=== PATIENT | female | born 1975 | race Caucasian/White ===

== ENCOUNTER 2024-01-29 11:30 | Emergency (ER) | payer OTHER ==
--- NOTE | 2024-01-29 11:35 | ERPHSYRPT ---
- History of Present Illness Time Seen by Provider: 01/29/24 11:35 Source: patient Exam Limitations: no limitations Physician History: This is a 48-year-old white female patient who has had swelling and tenderness in the area of the left parotid gland for over a month. Tylenol has not been helping. Patient does smoke marijuana and smokes tobacco cigarettes. She describes the pain as an ache. She has not had any fever or chills symptoms. She does have pain when she swallows on the left side in the hypopharyngeal region. She has no difficulty breathing or difficulty swallowing. Timing/Duration: gradual onset, weeks Severity: mild (Over 4 weeks) ENT Location: facial (Left side of face in the region of the parotid gland) Prearrival Treatment: over the counter meds Modifying Factors: Improves With: nothing Associated Symptoms: swollen glands, sore throat (Left side hypopharyngeal region), No difficulty swallowing, No voice change Allergies/Adverse Reactions: No Known Drug Allergies Allergy (Verified 01/29/24 11:42) Home Medications: Cariprazine HCl [Vraylar] 01/29/24 [History] Clopidogrel Bisulfate [Clopidogrel] 75 mg PO 01/29/24 [History] Insulin Aspart 100 unit SQ 01/29/24 [History] clonazePAM [Clonazepam] 1 mg PO 01/29/24 [History] Travel Risk - International Travel Have you traveled outside of the country in past 3 weeks: No - Emerging Infectious Disease Are you exhibiting symptoms associated with any current EIDs: No - Review of Systems Constitutional: No Symptoms Eyes: No Symptoms Ears, Nose, & Throat: Painful Swallowing (Mild left side hypopharyngeal region), Other Respiratory: No Symptoms Cardiac: No Symptoms Abdominal/Gastrointestinal: No Symptoms Genitourinary Symptoms: No Symptoms Musculoskeletal: No Symptoms Skin: No Symptoms Neurological: No Symptoms Psychological: No Symptoms Endocrine: No Symptoms Hematologic/Lymphatic: No Symptoms Immunological/Allergic: No Symptoms All Other Systems: Reviewed and Negative - Past Medical History Pertinent Past Medical History: Yes - Past Surgical History Past Surgical History: Yes - Nursing Vital Signs Nursing Vital Signs: Initial Vital Signs Temperature 97.7 F 01/29/24 11:36 Pulse Rate 83 01/29/24 11:36 Respiratory Rate 18 01/29/24 11:36 Blood Pressure 104/55 01/29/24 11:36 O2 Sat by Pulse Oximetry 98 01/29/24 11:36 Pain Scale Pain Intensity 10 - Physical Exam General Appearance: no apparent distress, alert, anxiety, thin Eye Exam: bilateral eye: normal inspection, PERRL, EOMI Ear Exam: bilateral ear: auricle normal, canal normal, TM normal Nasal Exam: normal inspection Throat Exam: normal, pharynx normal, moist mucus membranes, No dental tenderness, No excessive drooling, No voice changes Neck Exam: normal inspection, non-tender, supple, full range of motion Cardiovascular/Respiratory Exam: chest non-tender, no respiratory distress Abdominal Exam: non-tender Neurologic Exam: alert, oriented x 3, cooperative, salvager helper II-XII nml as tested, normal mood/affect, nml cerebellar function, nml station & gait, sensation nml Skin Exam: normal color, warm, dry SpO2 Interpretation: normal O2 Delivery: Room Air - Course Nursing assessment & vital signs reviewed: Yes - Progress Progress: unchanged Progress Note: 01/29/24 12:22 My medical decision making and the assignment of low complexity to this patient's medical issue today is based on review of the patient's past medical history, review the patient's medication list, review of patient drug allergy list, history present illness and physical findings on examination. No radiog raphic or laboratory studies are necessary in this patient. Differential diagnosis includes ENT carcinoma, sialadenitis, pharyngitis Counseled pt/family regarding: diagnosis, need for follow-up Medical Desision Making - Diagnostic Testing Diagnostic test were ordered, analyzed, and reviewed by me: No - Risk of complications The pt has a mod risk of morbidity or mortality based on: Need for prescription drug management - Departure Departure Disposition: Home Clinical Impression: Sialoadenitis, unspecified Condition: Stable Critical Care Time: No Referrals: PAUL TORRES MD [Primary Care Provider] - Follow up/PCP as directed Additional Instructions: Drink plenty of clear liquids. Use lemon drop candy several times a day. Massage the area of tenderness. Take your medication as prescribed. Call your primary care provider today, 01/29/2024, to make arrangements to be seen in the next 3 days for further evaluation and management including referral to an ear nose and throat physician if indicated Prescriptions: Hydrocodone/APAP 5/325 [Timnath 5/325 mg] 1 each PO Q12H PRN PRN #4 tablet MDD 2 PRN Reason: Pain Cephalexin Mh 500 mg [Keflex 500 mg] 500 mg PO TID #21 cap
[2024-01-29 11:42] VITALS: O2SAT 98
[2024-01-29 12:44] VITALS: BP 110/50; PULSE 88; RESP 20; TEMP 97.8
== END 2024-01-29 13:15 | disposition home or self-care (01) ==
LOC: ED 11:30
DX: K11.20 Sialoadenitis, unspecified (principal); Z79.02 Long term (current) use of antithrombotics/antiplatelets; Z79.891 Long term (current) use of opiate analgesic; Z79.899 Other long term (current) drug therapy
CPT/HCPCS: 99281

== ENCOUNTER 2024-03-07 12:59 | Emergency (ER) | payer OTHER ==
[2024-03-07 13:17] VITALS: BP 141/65; PULSE 83; RESP 18; TEMP 97; O2SAT 98
--- NOTE | 2024-03-07 14:10 | ERPHSYRPT ---
- History of Present Illness Time Seen by Provider: 03/07/24 13:21 Source: patient Exam Limitations: no limitations Patient Subjective Stated Complaint: pt here for swelling to left side of face, she recetly was seen and told it was a clogged saliva gland. having chills and nausea Triage Nursing Assessment: pt alert, resp easy, skin w/d/p. pt has swelling to left side of face, moves all ext well Physician History: 48 years old female with a history of tobacco use presented in the ER for the left lower jaw and side of the face swelling for almost 2 months, was evaluated at this ER, finished course of antibiotics, improved for few days and now again having increase in the swelling and pain especially with swallowing. Subjective feeling of fever and chills at times. No fever today. Denies any weight loss. Pain radiates to the left ear and head. No change in the taste. No hyperacusis Allergies/Adverse Reactions: No Known Drug Allergies Allergy (Verified 03/07/24 13:06) Home Medications: Cariprazine HCl [Vraylar] 1 ea DAILY 01/29/24 [History] Clopidogrel Bisulfate [Clopidogrel] 75 mg PO DAILY 01/29/24 [History] Insulin Aspart 100 unit SQ TID 01/29/24 [History] clonazePAM [Clonazepam] 1 mg PO DAILY 01/29/24 [History] Hx Tetanus, Diphtheria Vaccination/Date Given: Yes Hx Influenza Vaccination/Date Given: No Hx Pneumococcal Vaccination/Date Given: No Immunizations Up to Date: Yes Travel Risk - International Travel Have you traveled outside of the country in past 3 weeks: No - Emerging Infectious Disease Are you exhibiting symptoms associated with any current EIDs: No - Review of Systems Constitutional: No Symptoms Eyes: No Symptoms Ears, Nose, & Throat: Throat Swelling Respiratory: No Symptoms Cardiac: No Symptoms Abdominal/Gastrointestinal: No Symptoms Musculoskeletal: No Symptoms Skin: No Symptoms Neurological: No Symptoms - Past Medical History Pertinent Past Medical History: Yes Cardiac History: Myocardial Infarction ([place]) Endocrine Medical History: Diabetes Type I, Hypothyroidism - Past Surgical History Past Surgical History: Yes Other Surgical History: cyst. c section x 2. heart cath. appi - Female History Hx Last Menstrual Period: post Hx Now: No - Social History Smoking Status: Current every day smoker How long have you smoked: years Exposure to second hand smoke: Yes Drug Use: marijuana - Social Determinants of Health Will the patient participate in the screening: Declined to provide - Nursing Vital Signs Nursing Vital Signs: Initial Vital Signs Temperature 97.0 F 03/07/24 13:16 Pulse Rate 83 03/07/24 13:16 Respiratory Rate 18 03/07/24 13:16 Blood Pressure 141/65 03/07/24 13:16 O2 Sat by Pulse Oximetry 98 03/07/24 13:16 Pain Scale Pain Intensity 8 - Physical Exam General Appearance: no apparent distress, alert Eye Exam: bilateral eye: normal inspection, PERRL, EOMI Ear Exam: bilateral ear: auricle normal, canal normal, TM normal, bleeding Nasal Exam: normal inspection Throat Exam: normal, pharynx normal, mandibular swelling (Small area in the left mandible angle with minimal swelling as compared to right 1. Tenderness. 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 nml as tested Skin Exam: normal color SpO2 Interpretation: normal SpO2: 98 O2 Delivery: Room Air Ordered Tests: Active Orders 24 hr Category Date Time Status FACIAL BONES WO CONTRAST [CT] Stat Exams 03/07/24 13:33 Completed Medication Summary Discontinued Medications Generic Name Dose Route Start Last Admin Trade Name Axel PRN Reason Stop Dose Admin Ketorolac Tromethamine 30 mg 03/07/24 14:55 03/07/24 15:22 Ketorolac Tromethamine 30 Mg/Ml Inj IM 03/07/24 14:56 30 mg STAT ONE Administration Ketorolac Tromethamine Confirm 03/07/24 15:10 Ketorolac Tromethamine 30 Mg/Ml Inj Administered 03/07/24 15:11 Dose 30 mg .ROUTE .STK-MED ONE - Progress Progress: pain not gone completely Progress Note: 03/07/24 15:34 48 years old is evaluated in the ER for left angle of mandible area swelling with previously taken antibiotics for possible parotitis. Patient has no fever, no tachypnea or tachycardia. I have obtained CT facial bone which did not show any focal solid cystic soft tissue mass parotid and mandibular glands are bilateral symmetrical no other acute pathology in the face but patient does have left TMJ degenerative changes and I believe her pain is from TMJ. Recommended outpatient auto inspector/maxillofacial surgery follow-up. Do not think she needs any other workup. She is given Toradol for symptomatic relief and feeling some improvement. Recommended taking Tylenol ibuprofen as needed and outpatient follow-up. Discussed signs symptoms of worsening needing return to ER which she seems understanding. Counseled pt/family regarding: diagnosis, need for follow-up, rad results Medical Desision Making - Diagnostic Testing Diagnostic test were ordered, analyzed, and reviewed by me: Yes Radiological Interpretation: Reviewed by me - Risk of complications The pt has a mod risk of morbidity or mortality based on: Need for prescription drug management - Departure Departure Disposition: Home Clinical Impression: TMJ arthropathy Condition: Stable Critical Care Time: No Referrals: PAUL TORRES MD [Primary Care Provider] - Follow up with PCP 1 day AMIRA DIETZ DDS [NON-STAFF PHY W/O PRIVILEGES] - Follow up/PCP as directed (Call for appointment) Instructions: Temporomandibular Joint (TMJ) Disorders ([place]) Additional Instructions: Take Tylenol/ibuprofen as needed. Follow-up with auto inspector/maxillofacial surgery for reevaluation. Return to ER for any worsening. Prescriptions: Ibuprofen 600 mg PO Q6HPRN PRN 10 Days #20 tablet PRN Reason: Pain
--- NOTE | 2024-03-07 14:33 | XRAY ---
Indication: Left jaw swelling. No known injury. Multiple contiguous axial images through the facial bones. Cutaneous BB placed over region of interest. Comparison: None Cutaneous BB is adjacent to left masseter muscle. No underlying focal solid/cystic soft tissue mass. Parotid and submandibular glands are bilaterally symmetric. A few tiny bilateral cervical lymph nodes, none pathologically enlarged. Major arteries and veins are normal in course and caliber. Supra and infraglottic airway is widely patent. Normal epiglottis. Base of brain unremarkable. No acute fracture or suspicious bony lesions. Orbits including roof, chinchilla, and floors intact. Paranasal sinuses and nasal passages are clear. Osseous structures intact with mild C5-C7 degenerative changes. Mild degenerative changes left TMJ. No suspicious bony lesions. Impression: C5-C7 and left TMJ degenerative changes. Remaining CT facial bones without contrast exam is negative.
[2024-03-07] MEDS ORDERED: TORAdol 30 mg Injection ONE (15:10)
[2024-03-07] MEDS: TORAdol 30 mg Injection IM ONE (15:22)
== END 2024-03-07 15:50 | disposition home or self-care (01) ==
LOC: ED 12:59
DX: M26.652 Arthropathy of left temporomandibular joint (principal); E10.9 Type 1 diabetes mellitus without complications; Z79.02 Long term (current) use of antithrombotics/antiplatelets; Z79.899 Other long term (current) drug therapy; Z72.0 Tobacco use
CPT/HCPCS: 70486; 96372; 99283; J1885

== ENCOUNTER 2024-05-21 18:46 | Emergency (ER) | payer OTHER ==
[2024-05-21 19:09] VITALS: RESP 14; TEMP 98.1; O2SAT 97
[2024-05-21] MEDS: TORAdol 30 mg Injection IV ONE (19:18)
[2024-05-21] MEDS ORDERED: DECADRON 10MG INJ. ONE (19:19)
[2024-05-21] MEDS: DECADRON 10MG INJ. IM ONE (19:19)
[2024-05-21] MEDS ORDERED: TORAdol 30 mg Injection ONE (19:19)
[2024-05-21] MEDS: TORAdol 30 mg Injection IM ONE (19:20)
--- NOTE | 2024-05-21 19:23 | ERPHSYRPT ---
- History of Present Illness Time Seen by Provider: 05/21/24 19:17 Source: patient Exam Limitations: no limitations Patient Subjective Stated Complaint: pt states that she began to have back pain around 3 Triage Nursing Assessment: pt ambulated into the er; pt is axo x4; c/o back pain; pt states 10/10 pain lower back, pt is having trouble staying awake during triage; no bruising or deformity to lower back; good ROM to back; skin PDW; vitals wnl Physician History: 49-year-old female presents to our ED for evaluation of low back pain. Patient states low back pain started today. No trauma no fever. No recent back p rocedure. No change in bowel bladder function. Patient is concerned as she has a history of kidney stones. Patient reports she is worried that her back pain may actually be kidney stone related.. Symptoms are mild to moderate in intensity. No specific worsening improving factors. Patient denies urinary symptomology. No urinary frequency urgency or dysuria. Patient voices no other complaints or concerns at this time. Portions of this note were created with voice recognition technology. There may be grammatical, spelling, punctuation or sound alike errors Timing/Duration: today Method of Injury: unknown Quality: aching Back Pain Location: lumbar spine Severity of Pain-Max: moderate Severity of Pain-Current: mild Modifying Factors: Improves With: movement Associated Symptoms: denies symptoms, No fever, No urinary incontinence, No nausea, No vomiting, No weakness Allergies/Adverse Reactions: No Known Drug Allergies Allergy (Verified 05/21/24 18:58) Home Medications: Cariprazine HCl [Vraylar] 1 ea DAILY 01/29/24 [History] Clopidogrel Bisulfate [Clopidogrel] 75 mg PO DAILY 01/29/24 [History] Insulin Aspart 100 unit SQ TID 01/29/24 [History] clonazePAM [Clonazepam] 1 mg PO DAILY 01/29/24 [History] Hx Tetanus, Diphtheria Vaccination/Date Given: Yes Hx Influenza Vaccination/Date Given: No Hx Pneumococcal Vaccination/Date Given: No Travel Risk - International Travel Have you traveled outside of the country in past 3 weeks: No - Emerging Infectious Disease Are you exhibiting symptoms associated with any current EIDs: No - Review of Systems Constitutional: No Symptoms, No Fever, No Chills Eyes: No Symptoms Ears, Nose, & Throat: No Symptoms Respiratory: No Symptoms, No Cough, No Dyspnea Cardiac: No Symptoms, No Chest Pain, No Edema, No Syncope Abdominal/Gastrointestinal: No Symptoms, No Abdominal Pain, No Nausea, No Vomiting, No Diarrhea Genitourinary Symptoms: No Symptoms, No Dysuria Musculoskeletal: No Symptoms, No Back Pain, No Neck Pain Skin: No Symptoms, No Rash Neurological: No Symptoms, No Dizziness, No Focal Weakness, No Sensory Changes Psychological: No Symptoms Endocrine: No Symptoms Hematologic/Lymphatic: No Symptoms Immunological/Allergic: No Symptoms All Other Systems: Reviewed and Negative - Past Medical History Pertinent Past Medical History: Yes Cardiac History: High Cholesterol, Hypertension, Myocardial Infarction ([place]) Endocrine Medical History: Diabetes Type I, Hypothyroidism Psycho-Social History: Anxiety - Past Surgical History Past Surgical History: Yes Cardiac: Cardiac Catheterization Gastrointestinal: Appendectomy Female Surgical History: Section Other Surgical History: cyst. c section x 2. heart cath. appi - Female History Hx Last Menstrual Period: post Hx Now: No - Social History Smoking Status: Current every day smoker How long have you smoked: years Exposure to second hand smoke: Yes Drug Use: marijuana - Social Determinants of Health Will the patient participate in the screening: Declined to provide - Nursing Vital Signs Nursing Vital Signs: Initial Vital Signs Temperature 98.1 F 05/21/24 18:59 Pulse Rate 82 05/21/24 18:59 Respiratory Rate 14 05/21/24 18:59 Blood Pressure 101/67 05/21/24 18:59 O2 Sat by Pulse Oximetry 97 05/21/24 18:59 Pain Scale Pain Intensity [Lower Back] 10 Pain Intensity 10 - Physical Exam General Appearance: no apparent distress, alert Eye Exam: PERRL/EOMI, eyes nml inspection Neck Exam: normal inspection, non-tender, supple, full range of motion, No meningismus, No midline tenderness Respiratory Exam: normal breath sounds, lungs clear, No respiratory distress Cardiovascular Exam: regular rate/rhythm, normal heart sounds Gastrointestinal Exam: soft, No tenderness, No mass Back Exam: other (Tenderness to palpation midline low back) Extremity Exam: normal inspection, normal range of motion, No calf tenderness, No pedal edema Neurologic Exam: alert, oriented x 3, cooperative, 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 Stomach distended with food moderate diffuse fecal stasis. 5 mm nonobstructing left renal stone. Minimal lumbar dextroscoliosis.) Ordered Tests: Active Orders 24 hr Category Date Time Status ABDOMEN AND PELVIS W/0 CONTRAS [CT] Stat Exams 05/21/24 19:13 Taken RECONSTRUCTION [CT] Stat Exams 05/21/24 19:14 Taken POCT GLUCOSE Stat Lab 05/21/24 20:16 Completed UA W/RFX UR CULTURE Stat Lab 05/21/24 19:22 Completed Medication Summary Discontinued Medications Generic Name Dose Route Start Last Admin Trade Name Freq PRN Reason Stop Dose Admin Dexamethasone Sodium Phosphate 6 mg 05/21/24 19:16 05/21/24 19:19 Dexamethasone Sod Phosphate 10 Mg/Ml IM 05/21/24 19:17 6 mg STAT ONE Administration Dexamethasone Sodium Phosphate Confirm 05/21/24 19:19 Dexamethasone Sod Phosphate 10 Mg/Ml Administered 05/21/24 19:20 Dose 10 mg .ROUTE .STK-MED ONE Ketorolac Tromethamine 30 mg 05/21/24 19:15 05/21/24 19:18 Ketorolac Tromethamine 30 Mg/Ml Inj IV 05/21/24 19:16 Not Given STAT ONE Ketorolac Tromethamine 30 mg 05/21/24 19:17 05/21/24 19:20 Ketorolac Tromethamine 30 Mg/Ml Inj IM 05/21/24 19:18 30 mg STAT ONE Administration Ketorolac Tromethamine Confirm 05/21/24 19:19 Ketorolac Tromethamine 30 Mg/Ml Inj Administered 05/21/24 19:20 Dose 30 mg .ROUTE .STK-MED ONE Lab/Rad Data: Laboratory Results 05/21/24 05/21/24 Range/Units 20:16 19:22 POC Glucometer 165 H (74 to 106) mg/dL Urine Color Yellow (Yellow) Urine Appearance Clear (Clear) Urine pH 5.5 (4.6-8.0) Ur Specific [place] >=1.030 A (1.005-1.030) Urine Protein Negative (Negative) Urine Glucose (UA) >=1000 A (Negative) mg/dL Urine Ketones Negative (Negative) Urine Blood Moderate A (Negative) Urine Nitrite Negative (Negative) Urine Bilirubin Negative (Negative) Urine Urobilinogen 1.0 A (0.2) mg/dL Ur Leukocyte Esterase Negative (Negative) U Hyaline Cast (Auto) NONE SEEN (0-2) /LPF Urine Microscopic RBC 21-50 A (0-5) /HPF Urine Microscopic WBC 3-5 (0-5) /HPF Ur Epithelial Cells Moderate A (None Seen) /HPF Urine Bacteria None Seen (None Seen) /HPF Urine Culture Reflexed NO (NO) - Progress Progress: improved Progress Note: 49-year-old female presents to our ED for evaluation of low back pain. Patient concern for ureterolithiasis. CT abdomen pelvis negative for ureterolithiasis. 3D reconstruction views lumbar spine shows dextroscoliosis degenerative disc disease. Patient received Decadron and Toradol for pain control. Patient reassessed no active pain. Patient is comfortable. Urinalysis reveals a glucosuria however patient on Jardiance which will cause this problem. Blood sugar is 167. Will discharge patient home. Patient agrees to follow-up with her primary care doctor within 48 hours for reevaluation. Portions of this note were created with voice recognition technology. There may be grammatical, spelling, punctuation or sound alike errors Complexity of problem addressed is moderate acute complicated. No critical care time. Complex of data reviewed and analyzed is moderate. Test ordered test reviewed results analyzed and correlated clinically with history and physical exam. Risk of complication and or risk of morbidity/mortality patient management is moderate. Vital stable time spent to discharge patient approximately 15 minutes. Plan of care established for shared decision making. No social determinants of health present impede follow-up. Portions of this note were created with voice recognition technology. There may be grammatical, spelling, punctuation or sound alike errors 05/21/24 20:50 Counseled pt/family regarding: lab results, diagnosis, need for follow-up - Departure Departure Disposition: Home Clinical Impression: Glucosuria, Lumbosacral strain, She has fecal stasis, Dextroscoliosis of lumbar spine Condition: Stable Critical Care Time: No Referrals: PAUL TORRES MD [Primary Care Provider] - Follow up/PCP as directed Additional Instructions: Discharge/Care Plan ABHINAV DYER was seen on 05/21/24 in the Emergency Room. The patient was counseled regarding Diagnosis,Lab results, Imaging studies, need for follow up and when to return to the Emergency Room. Prescriptions given: Discharge Note I have spoken with the patient and/or caregivers. I have explained the patient's condition, diagnosis and treatment plan based on the information available to me at this time. I have answered the patient's and/or caregiver's questions and addressed any concerns. The patient and/or caregivers have as good understanding of the patient's diagnosis, condition and treatment plan as can be expected at this point. The vital signs have been stable. The patient's condition is stable and appropriate for discharge from the emergency department. The patient will pursue further outpatient evaluation with the primary care physician or other designated or consulting physician as outlined in the discharge instructions. The patient and/or caregivers are agreeable to this plan of care and follow-up instructions have been explained in detail. The patient and/or caregivers have received these instruction. The patient/and or caregivers are aware that any significant change in condition or worsening of symptoms should prompt an immediate return to this or the closest emergency department or call 911. Prescriptions: Ketorolac Trometh 10 mg Tab [TORAdol 10 MG TABLET] 10 mg PO TID 5 Days #15 tablet
[2024-05-21 19:30] LABS: Appearance Clear (Clear); Bacteria None Seen /HPF (None Seen); Bilirubin Negative (Negative); Blood Moderate (Negative); Epithelial Cells Moderate /HPF (None Seen); Glucose, Urine >=1000 mg/dL (Negative); Hyaline Casts NONE SEEN /LPF (0-2); Ketones Negative (Negative); Leukocyte Esterase Negative (Negative); Nitrite Negative (Negative); Ph 5.5 (4.6-8.0); Protein,Urine Dip Negative (Negative); RBC 21-50 /HPF (0-5); Specific Gravity >=1.030 (1.005-1.030)
[2024-05-21 19:45] LABS: ADD URINE CULTURE? NO (NO)
[2024-05-21 21:02] VITALS: BP 98/62; PULSE 80
--- NOTE | 2024-05-22 08:44 | XRAY ---
Indication: Pain. Multiple contiguous axial images obtained through the abdomen pelvis without contrast. Comparison: None Lung bases clear. Heart not enlarged. Stomach markedly distended with food. Gallbladder contracted without gallstones. Noncontrasted stomach and bowel loops appear nonobstructed. Appendix not visualized. There is moderate diffuse scattered colonic fecal debris throughout. Left kidney demonstrates 5 mm nonobstructing calculus. No free fluid/air. Remaining liver, gallbladder, pancreas, spleen, adrenal glands, kidneys, ureters, bladder, and uterus are unremarkable for noncontrast exam. Mild scattered aortoiliac calcifications without AAA. Osseous structures intact with minimal dextroscoliosis centered at L2. No ventral or inguinal hernias. Impression: 1. Moderate diffuse fecal stasis, nonobstructing left renal micro-calculus, and dextroscoliosis. 2. Remaining CT abdomen/pelvis without contrast exam is negative.
--- NOTE | 2024-05-22 08:46 | XRAY ---
Indication: Pain. Low back strain. Sagittal, coronal and axial reformatted images lumbar spine obtained using raw data from same day CT abdomen/pelvis exam. Minimal broad-based disc bulge at L3-S1 levels. No acute fracture, suspicious bony lesions, or spinal canal stenosis. Facets are symmetric. Sagittal and coronal reformatted images demonstrate normal lumbar lordosis with minimal dextroscoliosis centered at L2. Vertebral body heights/disc spaces maintained. No acute compression fracture. CT abdomen/pelvis reported separately. Impression: Minimal L3-S1 broad-based disc bulge better evaluated with outpatient MRI. Minimal dextroscoliosis. Remaining CT lumbar spine negative.
== END 2024-05-21 21:06 | disposition home or self-care (01) ==
LOC: ED 18:46
DX: R81 Glycosuria (principal); S39.012A Strain of muscle, fascia and tendon of lower back, initial encounter; K59.89 Other specified functional intestinal disorders; M41.86 Other forms of scoliosis, lumbar region; E78.5 Hyperlipidemia, unspecified; I10 Essential (primary) hypertension; E10.9 Type 1 diabetes mellitus without complications; Z79.02 Long term (current) use of antithrombotics/antiplatelets; Z79.899 Other long term (current) drug therapy; Z72.0 Tobacco use
CPT/HCPCS: 74176; 76376; 81001; 82947; 96372; 99284; J1100; J1885

== ENCOUNTER 2024-05-29 12:18 | Emergency (ER) | payer OTHER ==
[2024-05-29 12:48] VITALS: TEMP 98.6
[2024-05-29] MEDS: Zofran 4 MG/2 ML VIAL IV ONE ×2 (13:08→13:31)
[2024-05-29] MEDS: MORPHINE SULFATE 4 MG INJ IV ONE (13:08)
[2024-05-29] MEDS ORDERED: TORAdol 30 mg Injection ONE (13:10)
[2024-05-29] MEDS: TORAdol 30 mg Injection IM ONE (13:12)
--- NOTE | 2024-05-29 13:23 | XRAY ---
CLINICAL HISTORY: right rib cage pain from fall COMPARISON: None TECHNIQUE: X-ray of right ribs showing AP and oblique with chest AP views FINDINGS: Suspected fracture of the right 11th rib showing subtle angulation. No other bony rib injuries were identified. No sclerotic or lytic bony lesions. Soft tissue densities appear normal. The visualized right lung field appears clear. No evidence of pneumothorax. IMPRESSION: 1. Suspected fracture of the right 11th rib showing subtle angulation. Correlation with point tenderness in this region is suggested 2. No other bony rib injuries were identified. DISCLAIMER:A subtle bone abnormality or fracture may not be readily apparent on x-rays, thus clinical correlation and further imaging including follow-up CT, MRI, or follow-up X-rays are advised as needed.[facility] ER was called at [phone] at 12:17 PM [employer], 05/29/2024 and Bernarda was informed regarding the presence of Important Medical Findings in the report. Electronically Signed by: Nixon Kelly MD. (05/29/2024 13:19:59 EDT)
[2024-05-29 13:29] LABS: Absolute Neutrophil Ct (ANC) 5.92 x10^3/uL (1.56-6.13); BASOPHIL % 0.8 % (0.1-1.2); Basophil (Absolute #) 0.07 x10^3/uL (0.01-0.08); Eosinophil % 0.7 % (0.7-5.8); Eosinophil (Absolute #) 0.06 x10^3/uL (0.04-0.36); Hematocrit 43.7 % (34.1-44.9); Hemoglobin 14.6 g/dL (11.2-15.7); IMMATURE GRAN # 0.03 x10^3u/L (0.001-0.031); IMMATURE GRAN % 0.3 % (0.001-0.429); Lymphocytes % 23.2 % (19.3-51.7); Mean Corpuscular Hemoglobin 30.7 pg (25.6-32.2); Mean Corpuscular Hgb Concent. 33.4 g/dL (32.2-35.5); Monocyte (Absolute #) 0.88 x10^3/uL (0.24-0.86); Monocytes % 9.7 % (4.7-12.5); Neutrophil % 65.3 % (34.0-71.1); Platelet Count 312 x10^3/uL (182-369); Red Blood Count 4.75 x10^6/uL (3.93-5.22); Red Cell Distribution Width 12.4 % (11.7-14.4); White Blood Count 9.1 x10^3/uL (3.98-10.04)
[2024-05-29] MEDS ORDERED: Zofran 4 MG/2 ML VIAL ONE (13:30)
[2024-05-29] MEDS ORDERED: SUBLIMAZE 100 MCG/2 ML ONE (13:30)
[2024-05-29] MEDS: SUBLIMAZE 100 MCG/2 ML IV ONE (13:31)
[2024-05-29 13:37] VITALS: O2SAT 95
[2024-05-29 14:05] LABS: ALBUMIN 4.3 g/dL (3.5-5.0); ANION GAP 14.9 MEQ/L (5-15); BILIRUBIN,TOTAL 0.8 mg/dL (0.2-1.3); Calcium 8.8 mg/dL (8.4-10.2); Creatinine 1 0.88 mg/dL (0.52-1.04); EST GLOMERULAR FILTRATION RATE 79.5 ML/MIN; Potassium 3.9 mmol/L (3.5-5.1); Total Protein 6.7 g/dL (6.3-8.2)
[2024-05-29 14:52] VITALS: BP 105/47; PULSE 76; RESP 16
--- NOTE | 2024-05-29 14:52 | ERPHSYRPT ---
- History of Present Illness Time Seen by Provider: 05/29/24 12:27 Source: patient Exam Limitations: no limitations Patient Subjective Stated Complaint: Patient got up in the night to use the restroom and slipped on a rug/mat in her kitchen. She fell. C/O right rib pain. Triage Nursing Assessment: Patient ambulated back to ER. She has a slow gait. Bruising noted to RLE; denies difficulties or pain with RLE. No skin alterations noted to reported area of rib pain. Physician History: 49-year-old female with history of anxiety, chronic pain, CAD on aspirin/Plavix presented in the ER with chief complaint of fall and right lower chest wall/rib pain. Patient reports she woke up in the middle of the night, slipped over a piece of rug leading to fall and hit her right chest against the floor. Did not lose consciousness. Complaining of moderate intensity sharp pain in the right lower chest wall which is reproducible with palpation/movements and deep breathing and partial relief being still and shallow breathing. No abdominal pain nausea or vomiting. Did not hit her head. No injury anywhere else. Allergies/Adverse Reactions: No Known Drug Allergies Allergy (Verified 05/29/24 12:26) Home Medications: Clopidogrel Bisulfate [Clopidogrel] 75 mg PO DAILY 01/29/24 [History] Insulin Aspart 12 unit SQ TID 01/29/24 [History] clonazePAM [Clonazepam] 1 mg PO DAILY 01/29/24 [History] Aspirin EC 81 mg [Ecotrin 81 mg] 81 mg PO DAILY 05/29/24 [History] Hx Tetanus, Diphtheria Vaccination/Date Given: Yes Hx Influenza Vaccination/Date Given: No Hx Pneumococcal Vaccination/Date Given: No Immunizations Up to Date: Yes Travel Risk - International Travel Have you traveled outside of the country in past 3 weeks: No - Emerging Infectious Disease Are you exhibiting symptoms associated with any current EIDs: No - Review of Systems Constitutional: No Symptoms Ears, Nose, & Throat: No Symptoms Respiratory: No Symptoms Cardiac: Chest Pain Genitourinary Symptoms: No Symptoms Musculoskeletal: Fall Skin: No Symptoms Neurological: No Symptoms Endocrine: No Symptoms Hematologic/Lymphatic: No Symptoms Immunological/Allergic: No Symptoms - Past Medical History Pertinent Past Medical History: Yes Cardiac History: High Cholesterol, Hypertension, Myocardial Infarction ([place]) Endocrine Medical History: Diabetes Type I, Hypothyroidism Psycho-Social History: Anxiety - Past Surgical History Past Surgical History: Yes Cardiac: Cardiac Catheterization Gastrointestinal: Appendectomy Female Surgical History: Section Other Surgical History: cyst - Female History Hx Last Menstrual Period: post Hx Now: No - Social History Smoking Status: Current every day smoker How long have you smoked: years Exposure to second hand smoke: Yes Drug Use: marijuana - Social Determinants of Health Will the patient participate in the screening: Declined to provide - Nursing Vital Signs Nursing Vital Signs: Initial Vital Signs Temperature 98.6 F 05/29/24 12:25 Pulse Rate 90 05/29/24 12:25 Respiratory Rate 14 05/29/24 12:25 Blood Pressure 122/69 05/29/24 12:25 O2 Sat by Pulse Oximetry 98 05/29/24 12:25 Pain Scale Pain Intensity 2 - Physical Exam General Appearance: no apparent distress Eye Exam: PERRL/EOMI Ears, Nose, Throat Exam: normal ENT inspection, TMs normal, pharynx normal, moist mucous membranes Neck Exam: normal inspection, non-tender, supple, full range of motion Respiratory Exam: normal breath sounds, chest tenderness (Right lower chest wall with no crepitus.), lungs clear Cardiovascular Exam: regular rate/rhythm, normal heart sounds Gastrointestinal/Abdomen Exam: soft, normal bowel sounds, No tenderness Back Exam: normal range of motion Extremity Exam: normal inspection, normal range of motion Neurologic Exam: alert, oriented x 3, cooperative Skin Exam: normal color SpO2 Interpretation: normal SpO2: 95 O2 Delivery: Room Air Ordered Tests: Active Orders 24 hr Category Date Time Status IV Insertion STAT Care 05/29/24 13:26 Active RIBS UNILATERAL W/ PA CXR Stat Exams 05/29/24 12:33 Completed CBC W DIFF Stat Lab 05/29/24 13:15 Completed CMP Stat Lab 05/29/24 13:25 Completed LIPASE Stat Lab 05/29/24 13:25 Completed Lactic Acid Stat Lab 05/29/24 13:42 Completed Medication Summary Discontinued Medications Generic Name Dose Route Start Last Admin Trade Name Freq PRN Reason Stop Dose Admin Fentanyl Citrate 50 mcg 05/29/24 13:28 05/29/24 13:31 Fentanyl Citrate 100 Mcg/2 Ml* Vial IV 05/29/24 13:29 50 mcg STAT ONE Administration Fentanyl Citrate Confirm 05/29/24 13:30 Fentanyl Citrate 100 Mcg/2 Ml* Vial Administered 05/29/24 13:31 Dose 100 mcg .ROUTE .STK-MED ONE Ketorolac Tromethamine 30 mg 05/29/24 13:09 05/29/24 13:12 Ketorolac Tromethamine 30 Mg/Ml Inj IM 05/29/24 13:10 30 mg STAT ONE Administration Ketorolac Tromethamine Confirm 05/29/24 13:10 Ketorolac Tromethamine 30 Mg/Ml Inj Administered 05/29/24 13:11 Dose 30 mg .ROUTE .STK-MED ONE Morphine Sulfate 4 mg 05/29/24 13:00 05/29/24 13:08 Morphine Sulfate 4 Mg/Ml Injection IV 05/29/24 13:01 Not Given STAT ONE Ondansetron HCl 4 mg 05/29/24 13:00 05/29/24 13:08 Ondansetron Hcl 4 Mg/2 Ml Vial IV 05/29/24 13:01 Not Given STAT ONE Ondansetron HCl 4 mg 05/29/24 13:28 05/29/24 13:31 Ondansetron Hcl 4 Mg/2 Ml Vial IV 05/29/24 13:29 4 mg STAT ONE Administration Ondansetron HCl Confirm 05/29/24 13:30 Ondansetron Hcl 4 Mg/2 Ml Vial Administered 05/29/24 13:31 Dose 4 mg .ROUTE .STK-MED ONE Lab/Rad Data: Laboratory Result Diagrams 05/29/24 13:15 05/29/24 13:25 Laboratory Results 05/29/24 05/29/24 05/29/24 Range/Units 13:42 13:25 13:15 WBC 9.1 (3.98-10.04) x10^3/uL RBC 4.75 (3.93-5.22) x10^6/uL Hgb 14.6 (11.2-15.7) g/dL Hct 43.7 (34.1-44.9) % MCV 92.0 (79.4-94.8) fL MCH 30.7 (25.6-32.2) pg MCHC 33.4 (32.2-35.5) g/dL RDW 12.4 (11.7-14.4) % Plt Count 312 (182-369) x10^3/uL MPV 9.0 L (9.4-12.3) fL Gran % 65.3 (34.0-71.1) % Immature Gran % (Auto) 0.3 (0.001-0.429) % Nucleat RBC Rel Count 0.0 (0.00-0.2) % Eos # (Auto) 0.06 (0.04-0.36) x10^3/uL Immature Gran # (Auto) 0.03 (0.001-0.031) x10^3u/L Absolute Lymphs (auto) 2.10 (1.18-3.74) x10^3/uL Absolute Monos (auto) 0.88 H (0.24-0.86) x10^3/uL Absolute Nucleated RBC 0.00 (0.00-0.012) x10^3u/L Lymphocytes % 23.2 (19.3-51.7) % Monocytes % 9.7 (4.7-12.5) % Eosinophils % 0.7 (0.7-5.8) % Basophils % 0.8 (0.1-1.2) % Absolute Granulocytes 5.92 (1.56-6.13) x10^3/uL Basophils # 0.07 (0.01-0.08) x10^3/uL Sodium 135 (135-145) mmol/L Potassium 3.9 (3.5-5.1) mmol/L Chloride 98 (98-107) mmol/L Carbon Dioxide 26 (22-30) mmol/L Anion Gap 14.9 (5-15) MEQ/L BUN 22 H (7-17) mg/dL Creatinine 0.88 (0.52-1.04) mg/dL Estimated GFR 79.5 ML/MIN Glucose 113 H (74-106) mg/dL Lactic Acid 0.9 (0.4-2.0) Calcium 8.8 (8.4-10.2) mg/dL Total Bilirubin 0.80 (0.2-1.3) mg/dL AST 159 H (14-36) U/L ALT 113 H (0-35) U/L Alkaline Phosphatase 101 (38-126) U/L Serum Total Protein 6.7 (6.3-8.2) g/dL Albumin 4.3 (3.5-5.0) g/dL Lipase 289 (23-300) U/L - Progress Progress: improved Progress Note: 05/29/24 14:47 49-year-old is evaluated in the ER for a mechanical ground-level fall with injury to right lower chest wall. No crepitus. Has tenderness in the lower chest wall. Lungs clear to auscultation. No abdominal tenderness. Nonfocal neuroexam. X-ray rib series showed questionable fracture right 11th rib with some angulation. Patient has tenderness, baseline workup showed normal white count and hemoglobin, normal lactate, mildly elevated transaminases with normal bilirubin. Patient does report drinking on a regular basis. No tenderness on repeated evaluation after pain medications in the right upper quadrant. Minimal tenderness of the lower ribs. Recommended pain medications, deep breathing exercises and outpatient follow-up. Discussed signs symptoms of worsening needing return to ER which she seems understanding. Stable for discharge. Counseled pt/family regarding: lab results, diagnosis, need for follow-up, rad results Medical Desision Making - Diagnostic Testing Diagnostic test were ordered, analyzed, and reviewed by me: Yes Radiological Interpretation: Interpreted by me, Reviewed by me, Teleradiologist Report - Risk of complications The pt has a mod risk of morbidity or mortality based on: Need for prescription drug management - Departure Departure Disposition: Home Clinical Impression: Closed rib fracture, Chest wall contusion, Elevated transaminase level Condition: Stable Critical Care Time: No Referrals: PAUL TORRES MD [Primary Care Provider] - Follow up with PCP 1 day Instructions: Contusion (DC), Rib Fracture or Bruised Rib ED Additional Instructions: Intermittent ice application. Follow-up with primary care for reevaluation. Do deep breathing exercises. Take pain medications as needed. Return to ER for worsening pain, difficulty breathing etc. Prescriptions: Tramadol HCl 50 mg [Ultram 50 mg] 50 mg PO Q6HPRN PRN 3 Days #12 tablet PRN Reason: Pain Lidocaine HCl 5% Patch [Lidoderm Patch 5%] 1 patch TP DAILY 7 Days #12 patch
== END 2024-05-29 14:57 | disposition home or self-care (01) ==
LOC: ED 12:18
DX: S22.31XA Fracture of one rib, right side, initial encounter for closed fracture (principal); R07.81 Pleurodynia; W19.XXXA Unspecified fall, initial encounter; I25.10 Atherosclerotic heart disease of native coronary artery without angina pectoris; I10 Essential (primary) hypertension; F17.200 Nicotine dependence, unspecified, uncomplicated; S20.219A Contusion of unspecified front wall of thorax, initial encounter; R79.89 Other specified abnormal findings of blood chemistry; Z79.01 Long term (current) use of anticoagulants; Z79.899 Other long term (current) drug therapy
CPT/HCPCS: 36000; 36415; 71101; 80053; 83605; 83690; 85025; 96372; 96374; 96375; 99284; J1885; J2405; J3010

== ENCOUNTER 2024-07-02 10:17 | Emergency (ER) | payer OTHER ==
[2024-07-02 10:56] VITALS: RESP 20; TEMP 97.8
--- NOTE | 2024-07-02 11:10 | ERPHSYRPT ---
- History of Present Illness Time Seen by Provider: 07/02/24 11:08 Source: patient Exam Limitations: no limitations Patient Subjective Stated Complaint: Fever Triage Nursing Assessment: Patient ambulated back to ED and transferred self to bed. Patient A+O X3. Patient's skin pink, warm and dry. Patient complains of fever (unknown how high due to no thermometer, chills, bodyaches and ant ear pain since last 03/20. Physician History: 49-year-old female presents to emergency department for evaluation of fever chi lls body aches ear pain. Symptoms have been ongoing for the past several days. Symptoms are constant. No hematuria no dysuria. No cough. No rash. Symptoms are moderate in intensity. No specific worsening or improving factors. Patient recently moved into the area from [facility]. Patient has not followed up with a primary care doctor regarding her symptoms. Patient otherwise feels we ll. She voices no other complaints or concerns at this time. Portions of this note were created with voice recognition technology. There may be grammatical, spelling, punctuation or sound alike errors Timing/Duration: day(s) Severity: moderate Modifying Factors: Improves With: nothing Associated Symptoms: denies symptoms Allergies/Adverse Reactions: No Known Drug Allergies Allergy (Verified 07/02/24 10:51) Home Medications: Clopidogrel Bisulfate [Clopidogrel] 75 mg PO DAILY 01/29/24 [History] Insulin Aspart 12 unit SQ TID 01/29/24 [History] clonazePAM [Clonazepam] 1 mg PO DAILY 01/29/24 [History] Aspirin EC 81 mg [Ecotrin 81 mg] 81 mg PO DAILY 05/29/24 [History] Hx Tetanus, Diphtheria Vaccination/Date Given: Yes Hx Influenza Vaccination/Date Given: No Hx Pneumococcal Vaccination/Date Given: No Immunizations Up to Date: Yes Travel Risk - International Travel Have you traveled outside of the country in past 3 weeks: No - Emerging Infectious Disease Are you exhibiting symptoms associated with any current EIDs: No - Review of Systems Constitutional: No Symptoms, No Fever, No Chills Eyes: No Symptoms Ears, Nose, & Throat: No Symptoms Respiratory: No Symptoms, No Cough, No Dyspnea Cardiac: No Symptoms, No Chest Pain, No Edema, No Syncope Abdominal/Gastrointestinal: No Symptoms, No Abdominal Pain, No Nausea, No Vomiting, No Diarrhea Genitourinary Symptoms: No Symptoms, No Dysuria Musculoskeletal: No Symptoms, No Back Pain, No Neck Pain Skin: No Symptoms, No Rash Neurological: No Symptoms, No Dizziness, No Focal Weakness, No Sensory Changes Psychological: No Symptoms Endocrine: No Symptoms Hematologic/Lymphatic: No Symptoms Immunological/Allergic: No Symptoms All Other Systems: Reviewed and Negative - Past Medical History Pertinent Past Medical History: Yes Cardiac History: High Cholesterol, Hypertension, Myocardial Infarction (DC) Endocrine Medical History: Diabetes Type I, Hypothyroidism Psycho-Social History: Anxiety - Past Surgical History Past Surgical History: Yes Cardiac: Cardiac Catheterization Gastrointestinal: Appendectomy Female Surgical History: Section Other Surgical History: cyst - Female History Hx Last Menstrual Period: ablation Hx Now: No - Social History Smoking Status: Current every day smoker How long have you smoked: years Exposure to second hand smoke: No Drug Use: marijuana - Social Determinants of Health Will the patient participate in the screening: Yes Do you worry about a steady place to live?: No Do you have any problems with any of the following?: No known problems In the past 12 months,have you had to go without utilities?: No Transportation Issues: No Has anyone in your support network made you feel unsafe?: No Have you or anyone in your house had to go without enough: No - Nursing Vital Signs Nursing Vital Signs: Initial Vital Signs Temperature 97.8 F 07/02/24 10:52 Pulse Rate 64 07/02/24 10:52 Respiratory Rate 20 07/02/24 10:52 Blood Pressure 99/55 07/02/24 10:52 O2 Sat by Pulse Oximetry 97 07/02/24 10:52 Pain Scale Pain Intensity 7 - Physical Exam General Appearance: no apparent distress, alert Eye Exam: PERRL/EOMI, eyes nml inspection Ears, Nose, Throat Exam: normal ENT inspection, TMs normal, pharynx normal, moist mucous membranes Neck Exam: normal inspection, non-tender, supple, full range of motion, other (Left lateral cervical adenopathy) Respiratory Exam: normal breath sounds, lungs clear, airway intact, No respiratory distress Cardiovascular Exam: regular rate/rhythm, normal heart sounds, normal peripheral pulses Gastrointestinal/Abdomen Exam: soft, normal bowel sounds, No tenderness, No mass Back Exam: normal inspection, normal range of motion, No CVA tenderness, No vertebral tenderness Extremity Exam: normal inspection, normal range of motion, pelvis stable Neurologic Exam: alert, oriented x 3, cooperative, normal mood/affect, nml cerebellar function, nml station & gait, sensation nml, No motor deficits Skin Exam: normal color, warm, dry, No rash Lymphatic Exam: No adenopathy SpO2 Interpretation: normal SpO2: 97 O2 Delivery: Room Air - Course Nursing assessment & vital signs reviewed: Yes - Radiology Exams Chest X-ray Interpretation: Teleradiologist Report (Nonremarkable chest x-ray. Tiny foreign body is a body piercing overlying skin at the anterior chest wall) Ordered Tests: Active Orders 24 hr Category Date Time Status Management Technician STAT Care 07/02/24 11:11 Active IV Insertion STAT Care 07/02/24 11:10 Active Pulse Oximetry (ED) STAT Care 07/02/24 11:10 Active CHEST 1 VIEW (PORTABLE) Stat Exams 07/02/24 11:11 Completed BLOOD CULTURE Stat Lab 07/02/24 12:48 Received CBC W DIFF Stat Lab 07/02/24 11:45 Completed CMP Stat Lab 07/02/24 11:45 Completed Lactic Acid Stat Lab 07/02/24 11:10 Completed MONO SCREEN Stat Lab 07/02/24 11:45 Completed UA W/RFX UR CULTURE Stat Lab 07/02/24 11:30 Completed Medication Summary Generic Name Dose Route Start Last Admin Trade Name Freq PRN Reason Stop Dose Admin Sodium Chloride 1,000 mls @ 100 mls/hr 07/02/24 11:15 07/02/24 11:53 Sodium Chloride 0.9% 1000 Ml IV 08/01/24 11:14 100 mls/hr .Q10H YELENA Administration Lab/Rad Data: Laboratory Result Diagrams 07/02/24 11:45 07/02/24 11:45 Laboratory Results 07/02/24 07/02/24 07/02/24 Range/Units 12:52 12:52 11:45 WBC (3.98-10.04) x10^3/uL RBC (3.93-5.22) x10^6/uL Hgb (11.2-15.7) g/dL Hct (34.1-44.9) % MCV (79.4-94.8) fL MCH (25.6-32.2) pg MCHC (32.2-35.5) g/dL RDW (11.7-14.4) % Plt Count (182-369) x10^3/uL MPV (9.4-12.3) fL Gran % (34.0-71.1) % Immature Gran % (Auto) (0.001-0.429) % Nucleat RBC Rel Count (0.00-0.2) % Eos # (Auto) (0.04-0.36) x10^3/uL Immature Gran # (Auto) (0.001-0.031) x10^3u/L Absolute Lymphs (auto) (1.18-3.74) x10^3/uL Absolute Monos (auto) (0.24-0.86) x10^3/uL Absolute Nucleated RBC (0.00-0.012) x10^3u/L Lymphocytes % (19.3-51.7) % Monocytes % (4.7-12.5) % Eosinophils % (0.7-5.8) % Basophils % (0.1-1.2) % Absolute Granulocytes (1.56-6.13) x10^3/uL Basophils # (0.01-0.08) x10^3/uL Sodium (135-145) mmol/L Potassium (3.5-5.1) mmol/L Chloride (98-107) mmol/L Carbon Dioxide (22-30) mmol/L Anion Gap (5-15) MEQ/L BUN (7-17) mg/dL Creatinine (0.52-1.04) mg/dL Estimated GFR ML/MIN Glucose (74-106) mg/dL Lactic Acid (0.4-2.0) Calcium (8.4-10.2) mg/dL Total Bilirubin (0.2-1.3) mg/dL AST (14-36) U/L ALT (0-35) U/L Alkaline Phosphatase (38-126) U/L Serum Total Protein (6.3-8.2) g/dL Albumin (3.5-5.0) g/dL Urine Color (Yellow) Urine Appearance (Clear) Urine pH (4.6-8.0) Ur Specific [place] (1.005-1.030) Urine Protein (Negative) Urine Glucose (UA) (Negative) mg/dL Urine Ketones (Negative) Urine Blood (Negative) Urine Nitrite (Negative) Urine Bilirubin (Negative) Urine Urobilinogen (0.2) mg/dL Ur Leukocyte Esterase (Negative) U Hyaline Cast (Auto) (0-2) /LPF Urine Microscopic RBC (0-5) /HPF Urine Microscopic WBC (0-5) /HPF Ur Epithelial Cells (None Seen) /HPF Urine Bacteria (None Seen) /HPF Urine Culture Reflexed (NO) Monoscreen NEGATIVE (NEGATIVE) Influenza Type A Ag NEGATIVE (NEGATIVE) Influenza Type B Ag NEGATIVE (NEGATIVE) RSV (PCR) NEGATIVE (NEGATIVE) SARS-CoV-2 (PCR) NEGATIVE (NEGATIVE) Group A Strep Antibody NOT DETECTED (NEGATIVE) 07/02/24 07/02/24 07/02/24 Range/Units 11:45 11:45 11:30 WBC 6.4 (3.98-10.04) x10^3/uL RBC 4.95 (3.93-5.22) x10^6/uL Hgb 15.4 (11.2-15.7) g/dL Hct 45.7 H (34.1-44.9) % MCV 92.3 (79.4-94.8) fL MCH 31.1 (25.6-32.2) pg MCHC 33.7 (32.2-35.5) g/dL RDW 13.1 (11.7-14.4) % Plt Count 285 (182-369) x10^3/uL MPV 9.0 L (9.4-12.3) fL Gran % 69.7 (34.0-71.1) % Immature Gran % (Auto) 0.3 (0.001-0.429) % Nucleat RBC Rel Count 0.0 (0.00-0.2) % Eos # (Auto) 0.05 (0.04-0.36) x10^3/uL Immature Gran # (Auto) 0.02 (0.001-0.031) x10^3u/L Absolute Lymphs (auto) 1.41 (1.18-3.74) x10^3/uL Absolute Monos (auto) 0.39 (0.24-0.86) x10^3/uL Absolute Nucleated RBC 0.00 (0.00-0.012) x10^3u/L Lymphocytes % 22.2 (19.3-51.7) % Monocytes % 6.1 (4.7-12.5) % Eosinophils % 0.8 (0.7-5.8) % Basophils % 0.9 (0.1-1.2) % Absolute Granulocytes 4.42 (1.56-6.13) x10^3/uL Basophils # 0.06 (0.01-0.08) x10^3/uL Sodium 138 (135-145) mmol/L Potassium 4.1 (3.5-5.1) mmol/L Chloride 104 (98-107) mmol/L Carbon Dioxide 24 (22-30) mmol/L Anion Gap 13.8 (5-15) MEQ/L BUN 12 (7-17) mg/dL Creatinine 0.69 (0.52-1.04) mg/dL Estimated GFR 105.0 ML/MIN Glucose 247 H (74-106) mg/dL Lactic Acid (0.4-2.0) Calcium 8.9 (8.4-10.2) mg/dL Total Bilirubin 0.50 (0.2-1.3) mg/dL AST 29 (14-36) U/L ALT 23 (0-35) U/L Alkaline Phosphatase 116 (38-126) U/L Serum Total Protein 6.8 (6.3-8.2) g/dL Albumin 4.2 (3.5-5.0) g/dL Urine Color Yellow (Yellow) Urine Appearance Clear (Clear) Urine pH 5.5 (4.6-8.0) Ur Specific [place] >=1.030 A (1.005-1.030) Urine Protein Negative (Negative) Urine Glucose (UA) >=1000 A (Negative) mg/dL Urine Ketones Trace A (Negative) Urine Blood Negative (Negative) Urine Nitrite Negative (Negative) Urine Bilirubin Negative (Negative) Urine Urobilinogen 0.2 (0.2) mg/dL Ur Leukocyte Esterase Negative (Negative) U Hyaline Cast (Auto) NONE SEEN (0-2) /LPF Urine Microscopic RBC 0-2 (0-5) /HPF Urine Microscopic WBC 3-5 (0-5) /HPF Ur Epithelial Cells Few (None Seen) /HPF Urine Bacteria Rare A (None Seen) /HPF Urine Culture Reflexed NO (NO) Monoscreen (NEGATIVE) Influenza Type A Ag (NEGATIVE) Influenza Type B Ag (NEGATIVE) RSV (PCR) (NEGATIVE) SARS-CoV-2 (PCR) (NEGATIVE) Group A Strep Antibody (NEGATIVE) 07/02/24 Range/Units 11:10 WBC (3.98-10.04) x10^3/uL RBC (3.93-5.22) x10^6/uL Hgb (11.2-15.7) g/dL Hct (34.1-44.9) % MCV (79.4-94.8) fL MCH (25.6-32.2) pg MCHC (32.2-35.5) g/dL RDW (11.7-14.4) % Plt Count (182-369) x10^3/uL MPV (9.4-12.3) fL Gran % (34.0-71.1) % Immature Gran % (Auto) (0.001-0.429) % Nucleat RBC Rel Count (0.00-0.2) % Eos # (Auto) (0.04-0.36) x10^3/uL Immature Gran # (Auto) (0.001-0.031) x10^3u/L Absolute Lymphs (auto) (1.18-3.74) x10^3/uL Absolute Monos (auto) (0.24-0.86) x10^3/uL Absolute Nucleated RBC (0.00-0.012) x10^3u/L Lymphocytes % (19.3-51.7) % Monocytes % (4.7-12.5) % Eosinophils % (0.7-5.8) % Basophils % (0.1-1.2) % Absolute Granulocytes (1.56-6.13) x10^3/uL Basophils # (0.01-0.08) x10^3/uL Sodium (135-145) mmol/L Potassium (3.5-5.1) mmol/L Chloride (98-107) mmol/L Carbon Dioxide (22-30) mmol/L Anion Gap (5-15) MEQ/L BUN (7-17) mg/dL Creatinine (0.52-1.04) mg/dL Estimated GFR ML/MIN Glucose (74-106) mg/dL Lactic Acid 1.0 (0.4-2.0) Calcium (8.4-10.2) mg/dL Total Bilirubin (0.2-1.3) mg/dL AST (14-36) U/L ALT (0-35) U/L Alkaline Phosphatase (38-126) U/L Serum Total Protein (6.3-8.2) g/dL Albumin (3.5-5.0) g/dL Urine Color (Yellow) Urine Appearance (Clear) Urine pH (4.6-8.0) Ur Specific [place] (1.005-1.030) Urine Protein (Negative) Urine Glucose (UA) (Negative) mg/dL Urine Ketones (Negative) Urine Blood (Negative) Urine Nitrite (Negative) Urine Bilirubin (Negative) Urine Urobilinogen (0.2) mg/dL Ur Leukocyte Esterase (Negative) U Hyaline Cast (Auto) (0-2) /LPF Urine Microscopic RBC (0-5) /HPF Urine Microscopic WBC (0-5) /HPF Ur Epithelial Cells (None Seen) /HPF Urine Bacteria (None Seen) /HPF Urine Culture Reflexed (NO) Monoscreen (NEGATIVE) Influenza Type A Ag (NEGATIVE) Influenza Type B Ag (NEGATIVE) RSV (PCR) (NEGATIVE) SARS-CoV-2 (PCR) (NEGATIVE) Group A Strep Antibody (NEGATIVE) - Progress Progress: improved Progress Note: 49-year-old female presents to our ED with subjective fever body aches chills ear pain. Patient is a diabetic on Jardiance. No chest pain or shortness of breath. No nausea vomiting or diaphoresis. UA negative for UTI. There is a glucosuria however patient is on Jardiance. Influenza RSV COVID-negative. Rapid strep negative. Workup reveals some dehydration. Patient received IV fluids. Patient states she feels much better. Her symptoms have essentially resolved and she is not requesting discharge. Patient has more pets to take care of at home. Patient has no complaints she is currently asymptomatic. Patient agrees to follow-up with her primary care doctor within 48 hours for reevaluation. Portions of this note were created with voice recognition technology. There may be grammatical, spelling, punctuation or sound alike errors Complexity problem addressed is moderate acute complicated. No critical care time. Complex of data reviewed and analyzed is moderate. Test ordered test reviewed results analyzed and correlated clinically with history and physical exam. Risk of complication and or risk of morbidity/mortality of patient management is low. Vital stable. Time spent to discharge patient approximately 15 minutes. Plan of care established for shared decision making. No social determinants of health present to impede follow-up. Portions of this note were created with voice recognition technology. There may be grammatical, spelling, punctuation or sound alike errors 07/02/24 14:20 07/02/24 14:21 Counseled pt/family regarding: lab results, diagnosis, need for follow-up, rad results - Departure Departure Disposition: Home Clinical Impression: Subjective fever, Dehydration, Hyperglycemia, Viral syndrome Condition: Stable Critical Care Time: No Referrals: PAUL TORRES MD [Primary Care Provider] - Follow up/PCP as directed Additional Instructions: Discharge/Care Plan ABHINAV DYER was seen on 07/02/24 in the Emergency Room. The patient was counseled regarding Diagnosis,Lab results, Imaging studies, need for follow up and when to return to the Emergency Room. Prescriptions given: Discharge Note I have spoken with the patient and/or caregivers. I have explained the patient's condition, diagnosis and treatment plan based on the information available to me at this time. I have answered the patient's and/or caregiver's questions and addressed any concerns. The patient and/or caregivers have as good understanding of the patient's diagnosis, condition and treatment plan as can be expected at this point. The vital signs have been stable. The patient's condition is stable and appropriate for discharge from the emergency department. The patient will pursue further outpatient evaluation with the primary care physician or other designated or consulting physician as outlined in the discharge instructions. The patient and/or caregivers are agreeable to this plan of care and follow-up instructions have been explained in detail. The patient and/or caregivers have received these instruction. The patient/and or caregivers are aware that any significant change in condition or worsening of symptoms should prompt an immediate return to this or the closest emergency department or call 911.
[2024-07-02 11:38] LABS: Appearance Clear (Clear); Bacteria Rare /HPF (None Seen); Bilirubin Negative (Negative); Blood Negative (Negative); Epithelial Cells Few /HPF (None Seen); Glucose, Urine >=1000 mg/dL (Negative); Hyaline Casts NONE SEEN /LPF (0-2); Ketones Trace (Negative); Leukocyte Esterase Negative (Negative); Nitrite Negative (Negative); Ph 5.5 (4.6-8.0); Protein,Urine Dip Negative (Negative); RBC 0-2 /HPF (0-5); Specific Gravity >=1.030 (1.005-1.030); Urobilinogen 0.2 mg/dL (0.2)
[2024-07-02] MEDS ORDERED: Sodium Chloride 0.9% 1000 ML 1,000 ML ONE (11:47)
[2024-07-02] MEDS: Sodium Chloride 0.9% 1000 ML 1,000 ML IV SCH (11:53)
--- NOTE | 2024-07-02 11:59 | XRAY ---
Indication: Fever. Comparison: May 29, 2024 Portable chest remains hyperinflated and clear. Heart not enlarged. Bony thorax intact again with tiny foreign body overlying T3. No new/acute findings.
[2024-07-02 12:06] LABS: Absolute Neutrophil Ct (ANC) 4.42 x10^3/uL (1.56-6.13); BASOPHIL % 0.9 % (0.1-1.2); Basophil (Absolute #) 0.06 x10^3/uL (0.01-0.08); Eosinophil % 0.8 % (0.7-5.8); Eosinophil (Absolute #) 0.05 x10^3/uL (0.04-0.36); Hematocrit 45.7 % (34.1-44.9); Hemoglobin 15.4 g/dL (11.2-15.7); IMMATURE GRAN # 0.02 x10^3u/L (0.001-0.031); IMMATURE GRAN % 0.3 % (0.001-0.429); Lymphocyte (Absolute #) 1.41 x10^3/uL (1.18-3.74); Lymphocytes % 22.2 % (19.3-51.7); Mean Cell Volume 92.3 fL (79.4-94.8); Mean Corpuscular Hemoglobin 31.1 pg (25.6-32.2); Mean Corpuscular Hgb Concent. 33.7 g/dL (32.2-35.5); Monocyte (Absolute #) 0.39 x10^3/uL (0.24-0.86); Monocytes % 6.1 % (4.7-12.5); Neutrophil % 69.7 % (34.0-71.1); Platelet Count 285 x10^3/uL (182-369); Red Blood Count 4.95 x10^6/uL (3.93-5.22); Red Cell Distribution Width 13.1 % (11.7-14.4); White Blood Count 6.4 x10^3/uL (3.98-10.04)
[2024-07-02 12:21] LABS: ALBUMIN 4.2 g/dL (3.5-5.0); ANION GAP 13.8 MEQ/L (5-15); BILIRUBIN,TOTAL 0.5 mg/dL (0.2-1.3); Calcium 8.9 mg/dL (8.4-10.2); Creatinine 1 0.69 mg/dL (0.52-1.04); Potassium 4.1 mmol/L (3.5-5.1); Total Protein 6.8 g/dL (6.3-8.2)
[2024-07-02 12:40] VITALS: O2SAT 97
[2024-07-02 13:36] LABS: INFLUENZA A NEGATIVE (NEGATIVE); INFLUENZA B NEGATIVE (NEGATIVE); RESPIRATORY SYNCTIAL VIRUS NEGATIVE (NEGATIVE); SARS-CoV-2 Xpert Express NEGATIVE (NEGATIVE)
[2024-07-02 14:28] VITALS: BP 109/63; PULSE 80
== END 2024-07-02 14:38 | disposition home or self-care (01) ==
LOC: ED 10:17
DX: B34.9 Viral infection, unspecified (principal); R50.9 Fever, unspecified; E86.0 Dehydration; E10.65 Type 1 diabetes mellitus with hyperglycemia; M79.10 Myalgia, unspecified site; E78.5 Hyperlipidemia, unspecified; I10 Essential (primary) hypertension; Z79.02 Long term (current) use of antithrombotics/antiplatelets; Z79.4 Long term (current) use of insulin; Z79.899 Other long term (current) drug therapy; Z72.0 Tobacco use
CPT/HCPCS: 0241U; 36000; 36415; 71045; 80053; 81001; 83605; 85025; 86308; 87040; 87651; 93041; 94760; 96360; 96361; 99284

== ENCOUNTER 2024-10-24 00:39 | Emergency (ER) | payer OTHER ==
[2024-10-24 00:47] VITALS: TEMP 97.1
[2024-10-24] MEDS ORDERED: BABY ASPIRIN 81 MG CHEW ONE (01:13)
[2024-10-24] MEDS: BABY ASPIRIN 81 MG CHEW PO ONE (01:14)
--- NOTE | 2024-10-24 01:21 | ERPHSYRPT ---
- History of Present Illness Time Seen by Provider: 10/24/24 01:21 Historian: patient Exam Limitations: no limitations Patient Subjective Stated Complaint: low blood sugar, was 42 and got it up to 59 after eating but dropped to 46. Triage Nursing Assessment: Pt ambulated into ER without diff. Pt c/o low blood sugar around 2230 which was 42. Pt drank apple juice and ate half a peanut butter and jelly sandwich and got BS up to 59. Pt later rechecked BS and it was 46 at 2330. Upon arrival to ER, we checked BS and it was 127. Lungs clear, hea rt tones reg, abd soft with active bs x4 quad, nontender on palpation. Physician History: The patient, with a history of a heart attack related to high blood sugar, presents with chest pain and nausea. She experiences chest pain and nausea, which began after managing her blood sugar levels. The pain is diffuse and not localized. She associates the onset of symptoms with a recent episode of fluctuating blood sugar levels. Her blood sugar levels have varied significantly over the past three hours, ranging from 42 to 59 and then back down to 46, despite taking Pancreatin. She did not take insulin during the episode, which occurred after dinner around 7:31 PM, with symptoms starting around 10:00 PM. She denies alcohol consumption and reports spitting out bile, which she associates with stomach discomfort. She wonders if she might have ulcers, as she feels nervous all the time. She has no known history of pancreatic problems. Timing/Duration: today Activities at Onset: rest Quality: pressure, sharpness, stabbing Location: epigastric Chest Pain Radiation: no radiation Severity of Pain-Max: severe Severity of Pain-Current: mild Modifying Factors: Improves With: nothing. Worsens With: eating, palpation Associated Symptoms: nausea, vomiting, heartburn, abdominal pain, No shortness of breath, No cough, No hurts to breathe, No fever Prior Chest Pain/Cardiac Workup: no prior chest pain Nitro Today/Relief: no nitro taken today Aspirin Treatment Today: 81 mg x 4, provided by ED Allergies/Adverse Reactions: No Known Drug Allergies Allergy (Verified 10/24/24 00:57) Home Medications: Clopidogrel Bisulfate [Clopidogrel] 75 mg PO DAILY 01/29/24 [History] Insulin Aspart 1 unit SQ TID 01/29/24 [History] clonazePAM [Clonazepam] 1 mg PO TID 01/29/24 [History] Aspirin EC 81 mg [Ecotrin 81 mg] 81 mg PO DAILY 05/29/24 [History] Insulin Glargine [Lantus Insulin] 8 units SQ DAILY 10/24/24 [History] Lidocaine HCl 5% Patch [Lidoderm Patch 5%] 1 patch TP BID PRN PRN 10/24/24 [History] Metformin HCl 500 mg [Glucophage 500 MG] 1,500 mg PO DAILY 10/24/24 [History] Hx Tetanus, Diphtheria Vaccination/Date Given: Yes Hx Influenza Vaccination/Date Given: No Hx Pneumococcal Vaccination/Date Given: No Travel Risk - International Travel Have you traveled outside of the country in past 3 weeks: No - Emerging Infectious Disease Are you exhibiting symptoms associated with any current EIDs: Yes Symptoms: Headaches/Body Aches/ - Review of Systems All Other Systems: Reviewed and Negative - Past Medical History Pertinent Past Medical History: Yes Cardiac History: High Cholesterol, Hypertension, Myocardial Infarction ([place]) Endocrine Medical History: Diabetes Type II, Hypothyroidism Psycho-Social History: Anxiety, Other Other Medical History: bipolar. dormant TB - Past Surgical History Past Surgical History: Yes Cardiac: Cardiac Catheterization Gastrointestinal: Appendectomy Female Surgical History: Section Other Surgical History: cyst - Female History Hx Last Menstrual Period: ablation Hx Now: No - Social History Smoking Status: Current every day smoker How long have you smoked: 30 years Exposure to second hand smoke: Yes Drug Use: marijuana - Social Determinants of Health Will the patient participate in the screening: Yes Do you worry about a steady place to live?: No Do you have any problems with any of the following?: No known problems In the past 12 months,have you had to go without utilities?: No Transportation Issues: No Has anyone in your support network made you feel unsafe?: Yes Have you or anyone in your house had to go without enough: No - Nursing Vital Signs Nursing Vital Signs: Initial Vital Signs Temperature 97.1 F 10/24/24 00:44 Pulse Rate 80 10/24/24 00:44 Respiratory Rate 18 10/24/24 00:44 Blood Pressure 118/68 10/24/24 00:44 O2 Sat by Pulse Oximetry 100 10/24/24 00:44 Pain Scale Pain Intensity 0 - Physical Exam General Appearance: no apparent distress, thin Respiratory Exam: normal breath sounds, lungs clear, airway intact, No respirat ory distress Cardiovascular Exam: regular rate/rhythm, normal heart sounds, capillary refill <2 sec Gastrointestinal/Abdomen Exam: soft, normal bowel sounds, tenderness (epigastric), No distention, No mass, No guarding Neurologic Exam: alert, oriented x 3, cooperative SpO2 Interpretation: normal SpO2: 100 O2 Delivery: Room Air - Course Nursing assessment & vital signs reviewed: Yes EKG Interpreted by Me: RATE (84), Sinus Rhythm, NORMAL AXIS, NORMAL INTERVALS, NORMAL QRS, NORMAL ST-T Ordered Tests: Active Orders 24 hr Category Date Time Status ACO SDOH Referral ONCE Cons 10/24/24 00:57 Active CHEST 1 VIEW (PORTABLE) Stat Exams 10/24/24 01:07 Taken CBC W DIFF Stat Lab 10/24/24 01:30 Completed CMP Stat Lab 10/24/24 01:30 Completed LIPASE Stat Lab 10/24/24 01:30 Completed TROPONIN Q4H Lab 10/24/24 01:30 Received TROPONIN Q4H Lab 10/24/24 05:15 Ordered TROPONIN Q4H Lab 10/24/24 09:15 Ordered UA W/RFX UR CULTURE Stat Lab 10/24/24 01:30 Completed Medication Summary Discontinued Medications Generic Name Dose Route Start Last Admin Trade Name Freq PRN Reason Stop Dose Admin Aspirin 324 mg 10/24/24 01:06 10/24/24 01:14 Aspirin 81 Mg Tab.Chew PO 10/24/24 01:07 324 mg STAT ONE Administration Aspirin Confirm 10/24/24 01:13 Aspirin 81 Mg Tab.Chew Administered 10/24/24 01:14 Dose 324 mg .ROUTE .STK-MED ONE Sodium Chloride 1,000 mls @ 999 mls/hr 10/24/24 01:21 10/24/24 01:35 Sodium Chloride 0.9% 1000 Ml IV 10/24/24 02:21 999 mls/hr .Q1H1M STA Administration Sodium Chloride Confirm 10/24/24 01:30 Sodium Chloride 0.9% 1000 Ml Administered 10/24/24 01:31 Dose 1,000 mls @ ud .ROUTE .STK-MED ONE Ondansetron HCl 8 mg 10/24/24 01:21 10/24/24 01:35 Ondansetron Hcl 4 Mg/2 Ml Vial IV 10/24/24 01:22 8 mg STAT ONE Administration Ondansetron HCl Confirm 10/24/24 01:30 Ondansetron Hcl 4 Mg/2 Ml Vial Administered 10/24/24 01:31 Dose 8 mg .ROUTE .STK-MED ONE Pantoprazole Sodium 40 mg 10/24/24 01:21 10/24/24 01:35 Pantoprazole 40 Mg Vial IV 10/24/24 01:22 40 mg STAT ONE Administration Pantoprazole Sodium Confirm 10/24/24 01:30 Pantoprazole 40 Mg Vial Administered 10/24/24 01:31 Dose 40 mg IV .STK-MED ONE Lab/Rad Data: Laboratory Result Diagrams 10/24/24 01:30 10/24/24 01:30 Laboratory Results 10/24/24 10/24/24 10/24/24 Range/Units 01:30 01:30 01:30 WBC (3.98-10.04) x10^3/uL RBC (3.93-5.22) x10^6/uL Hgb (11.2-15.7) g/dL Hct (34.1-44.9) % MCV (79.4-94.8) fL MCH (25.6-32.2) pg MCHC (32.2-35.5) g/dL RDW (11.7-14.4) % Plt Count (182-369) x10^3/uL MPV (9.4-12.3) fL Gran % (34.0-71.1) % Immature Gran % (Auto) (0.001-0.429) % Nucleat RBC Rel Count (0.00-0.2) % Eos # (Auto) (0.04-0.36) x10^3/uL Immature Gran # (Auto) (0.001-0.031) x10^3u/L Absolute Lymphs (auto) (1.18-3.74) x10^3/uL Absolute Monos (auto) (0.24-0.86) x10^3/uL Absolute Nucleated RBC (0.00-0.012) x10^3u/L Lymphocytes % (19.3-51.7) % Monocytes % (4.7-12.5) % Eosinophils % (0.7-5.8) % Basophils % (0.1-1.2) % Absolute Granulocytes (1.56-6.13) x10^3/uL Basophils # (0.01-0.08) x10^3/uL Sodium 137 (135-145) mmol/L Potassium 3.8 (3.5-5.1) mmol/L Chloride 96 L (98-107) mmol/L Carbon Dioxide 29 (22-30) mmol/L Anion Gap 16.1 H (5-15) MEQ/L BUN 19 H (7-17) mg/dL Creatinine 0.77 (0.52-1.04) mg/dL Estimated GFR 93.3 ML/MIN Glucose 173 H (74-106) mg/dL Calcium 9.4 (8.4-10.2) mg/dL Total Bilirubin 0.40 (0.2-1.3) mg/dL AST 29 (14-36) U/L ALT 19 (0-35) U/L Alkaline Phosphatase 99 (38-126) U/L Troponin I < 0.012 (0.000-0.033) ng/mL Serum Total Protein 7.4 (6.3-8.2) g/dL Albumin 4.8 (3.5-5.0) g/dL Lipase 456 H (23-300) U/L Urine Color Yellow (Yellow) Urine Appearance Clear (Clear) Urine pH 6.0 (4.6-8.0) Ur Specific [place] 1.015 (1.005-1.030) Urine Protein Negative (Negative) Urine Glucose (UA) >=1000 A (Negative) mg/dL Urine Ketones Negative (Negative) Urine Blood Negative (Negative) Urine Nitrite Negative (Negative) Urine Bilirubin Negative (Negative) Urine Urobilinogen 0.2 (0.2) mg/dL Ur Leukocyte Esterase Trace A (Negative) U Hyaline Cast (Auto) NONE SEEN (0-2) /LPF Urine Microscopic RBC 0-2 (0-5) /HPF Urine Microscopic WBC 6-10 A (0-5) /HPF Ur Epithelial Cells Rare (None Seen) /HPF Urine Bacteria None Seen (None Seen) /HPF Urine Culture Reflexed NO (NO) 10/24/24 Range/Units 01:30 WBC 9.7 (3.98-10.04) x10^3/uL RBC 4.93 (3.93-5.22) x10^6/uL Hgb 15.3 (11.2-15.7) g/dL Hct 45.2 H (34.1-44.9) % MCV 91.7 (79.4-94.8) fL MCH 31.0 (25.6-32.2) pg MCHC 33.8 (32.2-35.5) g/dL RDW 12.4 (11.7-14.4) % Plt Count 337 (182-369) x10^3/uL MPV 9.2 L (9.4-12.3) fL Gran % 63.0 (34.0-71.1) % Immature Gran % (Auto) 0.3 (0.001-0.429) % Nucleat RBC Rel Count 0.0 (0.00-0.2) % Eos # (Auto) 0.12 (0.04-0.36) x10^3/uL Immature Gran # (Auto) 0.03 (0.001-0.031) x10^3u/L Absolute Lymphs (auto) 2.54 (1.18-3.74) x10^3/uL Absolute Monos (auto) 0.81 (0.24-0.86) x10^3/uL Absolute Nucleated RBC 0.00 (0.00-0.012) x10^3u/L Lymphocytes % 26.1 (19.3-51.7) % Monocytes % 8.3 (4.7-12.5) % Eosinophils % 1.2 (0.7-5.8) % Basophils % 1.1 (0.1-1.2) % Absolute Granulocytes 6.12 (1.56-6.13) x10^3/uL Basophils # 0.11 H (0.01-0.08) x10^3/uL Sodium (135-145) mmol/L Potassium (3.5-5.1) mmol/L Chloride (98-107) mmol/L Carbon Dioxide (22-30) mmol/L Anion Gap (5-15) MEQ/L BUN (7-17) mg/dL Creatinine (0.52-1.04) mg/dL Estimated GFR ML/MIN Glucose (74-106) mg/dL Calcium (8.4-10.2) mg/dL Total Bilirubin (0.2-1.3) mg/dL AST (14-36) U/L ALT (0-35) U/L Alkaline Phosphatase (38-126) U/L Troponin I (0.000-0.033) ng/mL Serum Total Protein (6.3-8.2) g/dL Albumin (3.5-5.0) g/dL Lipase (23-300) U/L Urine Color (Yellow) Urine Appearance (Clear) Urine pH (4.6-8.0) Ur Specific [place] (1.005-1.030) Urine Protein (Negative) Urine Glucose (UA) (Negative) mg/dL Urine Ketones (Negative) Urine Blood (Negative) Urine Nitrite (Negative) Urine Bilirubin (Negative) Urine Urobilinogen (0.2) mg/dL Ur Leukocyte Esterase (Negative) U Hyaline Cast (Auto) (0-2) /LPF Urine Microscopic RBC (0-5) /HPF Urine Microscopic WBC (0-5) /HPF Ur Epithelial Cells (None Seen) /HPF Urine Bacteria (None Seen) /HPF Urine Culture Reflexed (NO) - Progress Progress: improved Air Movement: good Progress Note: Hypoglycemia Blood glucose levels fluctuated between 42 and 59, dropping to 46 after Pancreatin intake. Occurred over three hours. On insulin therapy but did not administer insulin during the episode. Likely related to timing of insulin and food intake. - Monitor blood glucose levels closely - Adjust insulin regimen as needed - Educate on recognizing symptoms of hypoglycemia and appropriate management Chest Pain Diffuse chest pain following hypoglycemia. Concern for cardiac stress due to previous myocardial infarction related to hyperglycemia. Differential includes cardiac and gastrointestinal causes such as ulcers. - Administer aspirin as a precautionary measure - Order lab work to assess cardiac function - EKG neg - Evaluate for gastrointestinal causes of pain Gastrointestinal Discomfort Nausea and bile regurgitation with pancreatic area discomfort. Possible ulcer contribution. Denies alcohol use and no known pancreatic history. Lab work to rule out pancreatic involvement. - Order lab work to evaluate pancreatic function - Prescribe medication to reduce stomach acid Labs remarkable for glucose of 179, lipase 450, UA some bacteria with no LE. Troponin neg. No urinary sxs so abx deferred. Discomfort improved with Protonix and zofran. Will DC home with Omeprazole 40mg BID x 30 days. Recommend close follow up, may need EGD. 10/24/24 02:34 Blood Culture(s) Obtained: No Antibiotics given: No Counseled pt/family regarding: lab results, diagnosis, need for follow-up Medical Desision Making - Diagnostic Testing Diagnostic test were ordered, analyzed, and reviewed by me: Yes Radiological Interpretation: Interpreted by me - Risk of complications The pt has a mod risk of morbidity or mortality based on: Need for prescription drug management - Departure Departure Disposition: Home Clinical Impression: Glucosuria, Hypoglycemia, Epigastric pain, Elevated lipase, GERD (gastroesophageal reflux disease) Condition: Good Critical Care Time: No Referrals: PAUL TORRES MD [Primary Care Provider] - Follow up/PCP as directed Instructions: Low Blood Sugar, Adult (DC) Prescriptions: Omeprazole 40 mg PO BID 30 Days #60 cap
[2024-10-24] MEDS ORDERED: Sodium Chloride 0.9% 1000 ML 1,000 ML ONE (01:30)
[2024-10-24] MEDS ORDERED: Zofran 4 MG/2 ML VIAL ONE (01:30)
[2024-10-24] MEDS ORDERED: PROTONIX 40 MG IV IV ONE (01:30)
[2024-10-24] MEDS: Zofran 4 MG/2 ML VIAL IV ONE (01:35)
[2024-10-24] MEDS: Sodium Chloride 0.9% 1000 ML 1,000 ML IV STA (01:35)
[2024-10-24] MEDS: PROTONIX 40 MG IV IV ONE (01:35)
[2024-10-24 01:39] LABS: Absolute Neutrophil Ct (ANC) 6.12 x10^3/uL (1.56-6.13); BASOPHIL % 1.1 % (0.1-1.2); Basophil (Absolute #) 0.11 x10^3/uL (0.01-0.08); Eosinophil % 1.2 % (0.7-5.8); Eosinophil (Absolute #) 0.12 x10^3/uL (0.04-0.36); Hematocrit 45.2 % (34.1-44.9); Hemoglobin 15.3 g/dL (11.2-15.7); IMMATURE GRAN # 0.03 x10^3u/L (0.001-0.031); IMMATURE GRAN % 0.3 % (0.001-0.429); Lymphocyte (Absolute #) 2.54 x10^3/uL (1.18-3.74); Lymphocytes % 26.1 % (19.3-51.7); Mean Cell Volume 91.7 fL (79.4-94.8); Mean Corpuscular Hgb Concent. 33.8 g/dL (32.2-35.5); Mean Platelet Volume 9.2 fL (9.4-12.3); Monocyte (Absolute #) 0.81 x10^3/uL (0.24-0.86); Monocytes % 8.3 % (4.7-12.5); Platelet Count 337 x10^3/uL (182-369); Red Blood Count 4.93 x10^6/uL (3.93-5.22); Red Cell Distribution Width 12.4 % (11.7-14.4); White Blood Count 9.7 x10^3/uL (3.98-10.04)
[2024-10-24 01:50] LABS: Appearance Clear (Clear); Bacteria None Seen /HPF (None Seen); Bilirubin Negative (Negative); Blood Negative (Negative); Epithelial Cells Rare /HPF (None Seen); Glucose, Urine >=1000 mg/dL (Negative); Hyaline Casts NONE SEEN /LPF (0-2); Ketones Negative (Negative); Leukocyte Esterase Trace (Negative); Nitrite Negative (Negative); Protein,Urine Dip Negative (Negative); RBC 0-2 /HPF (0-5); Specific Gravity 1.015 (1.005-1.030); Urobilinogen 0.2 mg/dL (0.2)
[2024-10-24 02:08] VITALS: BP 102/53; PULSE 79; RESP 16
[2024-10-24 02:10] LABS: ALBUMIN 4.8 g/dL (3.5-5.0); ANION GAP 16.1 MEQ/L (5-15); BILIRUBIN,TOTAL 0.4 mg/dL (0.2-1.3); Calcium 9.4 mg/dL (8.4-10.2); Creatinine 1 0.77 mg/dL (0.52-1.04); EST GLOMERULAR FILTRATION RATE 93.3 ML/MIN; Potassium 3.8 mmol/L (3.5-5.1); Total Protein 7.4 g/dL (6.3-8.2)
[2024-10-24 02:17] VITALS: O2SAT 100
--- NOTE | 2024-10-24 08:42 | XRAY ---
Indication: Chest pain. Comparison: July 02, 2024 Portable chest again hyperinflated and clear. Heart not enlarged. Bony thorax intact again with tiny foreign body overlying T3. No new/acute findings.
== END 2024-10-24 02:42 | disposition home or self-care (01) ==
LOC: ED 00:39
DX: E11.649 Type 2 diabetes mellitus with hypoglycemia without coma (principal); R81 Glycosuria; R10.13 Epigastric pain; R74.8 Abnormal levels of other serum enzymes; K21.9 Gastro-esophageal reflux disease without esophagitis; R07.9 Chest pain, unspecified; R11.0 Nausea; E78.5 Hyperlipidemia, unspecified; I10 Essential (primary) hypertension; Z79.84 Long term (current) use of oral hypoglycemic drugs; Z79.4 Long term (current) use of insulin; Z79.899 Other long term (current) drug therapy; Z72.0 Tobacco use; Z63.9 Problem related to primary support group, unspecified
CPT/HCPCS: 36415; 71045; 80053; 81001; 83690; 84484; 85025; 93005; 96374; 96375; 99284; J2405; A9270-GY

== ENCOUNTER 2024-12-16 11:25 | Emergency (ER) | payer OTHER ==
--- NOTE | 2024-12-16 11:29 | ERPHSYRPT ---
- History of Present Illness Time Seen by Provider: 12/16/24 11:28 Source: patient, family Exam Limitations: no limitations Physician History: This is a thin 49-year-old white female patient brought to the emergency department by private vehicle accompanied by her significant other and is a patient Dr. Valdez secondary to right lower back pain. Patient denies chest pain and she denies shortness of breath. On 12/13/2024, patient was carrying around a toddler which aggravated a chronic low back pain issue. Last night, she fell down and reaggravated that same area. She has aching in the right side of her lower back at the lumbar level. Patient did not take anything for the pain because she states that she does not have Tylenol or ibuprofen at home. Patient does have chronic back pain issues. She has not seen a pain specialist but they are trying to find one that will take her insurance. Patient has a history of gastroesophageal reflux disease, anxiety, insulin-dependent diabetes, hyperlipidemia, hypothyroidism, bipolar disorder and has a history of AR in the past. She also takes Plavix. Timing/Duration: day(s) (3), worse Method of Injury: fall, lifting Quality: aching Back Pain Location: lumbar spine, paraspinous muscles Severity of Pain-Max: moderate (Right side) Severity of Pain-Current: moderate Modifying Factors: Improves With: movement Associated Symptoms: lower back pain, muscle spasms (Right side lower lumbar level), No urinary incontinence, No loss of bowel control, No problems urinating, No numbness in legs/feet Previous symptoms: same symptoms as today, no recent treatment Allergies/Adverse Reactions: No Known Drug Allergies Allergy (Verified 12/16/24 11:36) Home Medications: Clopidogrel Bisulfate [Clopidogrel] 75 mg PO DAILY 01/29/24 [History] Insulin Aspart 1 unit SQ TID 01/29/24 [History] clonazePAM [Clonazepam] 1 mg PO TID 01/29/24 [History] Aspirin EC 81 mg [Ecotrin 81 mg] 81 mg PO DAILY 05/29/24 [History] Insulin Glargine [Lantus Insulin] 8 units SQ DAILY 10/24/24 [History] Lidocaine HCl 5% Patch [Lidoderm Patch 5%] 1 patch TP BID PRN PRN 10/24/24 [History] Metformin HCl 500 mg [Glucophage 500 MG] 1,500 mg PO DAILY 10/24/24 [History] Hx Tetanus, Diphtheria Vaccination/Date Given: Yes Hx Influenza Vaccination/Date Given: No Hx Pneumococcal Vaccination/Date Given: No Travel Risk - International Travel Have you traveled outside of the country in past 3 weeks: No - Emerging Infectious Disease Are you exhibiting symptoms associated with any current EIDs: Yes Symptoms: Headaches/Body Aches/ - Review of Systems Constitutional: No Symptoms Eyes: No Symptoms Ears, Nose, & Throat: No Symptoms Respiratory: No Symptoms Cardiac: No Symptoms Abdominal/Gastrointestinal: No Symptoms Genitourinary Symptoms: No Symptoms Musculoskeletal: Back Pain, Fall Skin: No Symptoms Neurological: No Symptoms Psychological: No Symptoms Endocrine: No Symptoms Hematologic/Lymphatic: No Symptoms Immunological/Allergic: No Symptoms All Other Systems: Reviewed and Negative - Past Medical History Pertinent Past Medical History: Yes Cardiac History: High Cholesterol, Hypertension, Myocardial Infarction ([place]) Endocrine Medical History: Diabetes Type II, Hypothyroidism Psycho-Social History: Anxiety, Other Other Medical History: bipolar. dormant TB - Past Surgical History Past Surgical History: Yes Cardiac: Cardiac Catheterization Gastrointestinal: Appendectomy Female Surgical History: Section Other Surgical History: cyst - Female History Hx Last Menstrual Period: ablation - Social History Smoking Status: Current every day smoker How long have you smoked: 30 years Exposure to second hand smoke: Yes Drug Use: marijuana - Social Determinants of Health Will the patient participate in the screening: Yes Do you worry about a steady place to live?: No In the past 12 months,have you had to go without utilities?: No Transportation Issues: No Has anyone in your support network made you feel unsafe?: Yes Have you or anyone in your house had to go w/o enough food: No - Nursing Vital Signs Nursing Vital Signs: Initial Vital Signs Pulse Rate 75 12/16/24 11:36 Respiratory Rate 16 12/16/24 11:36 Blood Pressure 118/63 12/16/24 11:36 O2 Sat by Pulse Oximetry 97 12/16/24 11:36 Pain Scale Pain Intensity [Right Lower 7 Back] Pain Intensity 7 - Physical Exam General Appearance: no apparent distress, alert, anxiety, thin Eye Exam: PERRL/EOMI, eyes nml inspection Ears, Nose, Throat Exam: normal ENT inspection, moist mucous membranes Neck Exam: normal inspection, non-tender, supple, full range of motion Respiratory Exam: normal breath sounds, lungs clear, airway intact, No chest tenderness, No respiratory distress Cardiovascular Exam: regular rate/rhythm, normal heart sounds, normal peripheral pulses Gastrointestinal Exam: soft, normal bowel sounds, No tenderness Pelvic Exam: not done Rectal Exam: not done Back Exam: normal inspection, normal range of motion, muscle spasm (Right side, lower lumbar level tenderness to palpation), No vertebral tenderness, No rash, No point tenderness Extremity Exam: normal inspection, normal range of motion, pelvis stable Neurologic Exam: alert, oriented x 3, 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, 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, nml cerebellar function, nml station & gait, sensation nml Skin Exam: normal color, warm, dry Lymphatic Exam: No adenopathy SpO2 Interpretation: normal O2 Delivery: Room Air - Course Nursing assessment & vital signs reviewed: Yes Ordered Tests: Active Orders 24 hr Category Date Time Status LUMBAR COMPLETE (MIN 4 VIEWS) Stat Exams 12/16/24 12:21 Taken Medication Summary Discontinued Medications Generic Name Dose Route Start Last Admin Trade Name Axel PRN Reason Stop Dose Admin Methylprednisolone Sodium 0 mg 12/16/24 12:22 12/16/24 12:37 Succinate 125 mg/ Sterile IM 12/16/24 12:23 125 mg Water 2 ml STAT ONE Administration Methylprednisolone Sodium Succinate Confirm 12/16/24 12:29 Methylprednis Sod Succ 125 Mg/2 Ml Vial Administered 12/16/24 12:30 Dose 125 mg .ROUTE .STK-MED ONE Orphenadrine Citrate 60 mg 12/16/24 12:22 12/16/24 12:35 Orphenadrine Citrate 60 Mg/2 Ml Vial IM 12/16/24 12:23 60 mg STAT ONE Administration Orphenadrine Citrate Confirm 12/16/24 12:29 Orphenadrine Citrate 60 Mg/2 Ml Vial Administered 12/16/24 12:30 Dose 60 mg .ROUTE .STK-MED ONE Oxycodone/Acetaminophen 1 tab 12/16/24 12:21 12/16/24 12:32 Oxycodone Hcl/Apap 5 Mg/325 Mg Tablet PO 12/16/24 12:22 1 tab STAT STA Administration Oxycodone/Acetaminophen Confirm 12/16/24 12:29 Oxycodone Hcl/Apap 5 Mg/325 Mg Tablet Administered 12/16/24 12:30 Dose 1 tab .ROUTE .STK-MED ONE Sterile Water Confirm 12/16/24 12:29 Water For Injection,Sterile 10 Ml Vial Administered 12/16/24 12:30 Dose 10 ml IJ .STK-MED ONE Lab/Rad Data: Laboratory Results 12/16/24 Range/Units 11:33 Urine Color YELLOW (YELLOW) Urine Appearance CLEAR (CLEAR) Urine pH 5.5 (5-6) Ur Specific [place] 1.010 (1.005-1.025) POC Urine Protein Conf NEGATIVE (Negative) Urine Ketones NEGATIVE (NEGATIVE) Urine Nitrite NEGATIVE (NEGATIVE) Urine Bilirubin NEGATIVE (NEGATIVE) Urine Urobilinogen 0.2 (0-1) mg/dL Urine Leukocytes NEGATIVE (NEGATIVE) Urine RBC NEGATIVE (0-5) Clarence/ul Urine Microscopic RBC NONE SEEN (0-5) /HPF Urine Microscopic WBC 0-2 (0-5) /HPF Ur Epithelial Cells Few (None Seen) /HPF Urine Bacteria Few A (None Seen) /HPF Urine Culture Reflexed NO (NO) Urine Glucose >=1000 A (NEGATIVE) mg/dL - Progress Progress: improved, pain not gone completely Progress Note: 12/16/24 12:37 My medical decision making of the assignment of low to moderate complexity of this patient's medical issue today is based on review of the patient's past medical history, review the patient's medication list, reviewed patient drug allergy list, history present illness and physical findings on examination. The workup in this patient includes lumbar spine plain x-rays. Differential diagnosis includes but is not limited to fracture/subluxation lumbar spine, acute on chronic low back pain, sciatica 12/16/24 13:12 I interpreted the patient's preliminary x-ray report on the lumbar spine series. I see no acute fracture or subluxation. However, L5 appears to have a chronic, old mild compression fracture. Counseled pt/family regarding: diagnosis, need for follow-up, rad results Medical Desision Making - Independent Historian Additional History obtained from: Spouse - Diagnostic Testing Diagnostic test were ordered, analyzed, and reviewed by me: Yes Radiological Interpretation: Reviewed by me, Teleradiologist Report - Risk of complications The pt has a mod risk of morbidity or mortality based on: Need for prescription drug management - Departure Departure Disposition: Home Clinical Impression: Acute on chronic low back pain, Sciatica Condition: Stable Critical Care Time: No Referrals: THUY VALDEZ MD [Primary Care Provider] - Follow up/PCP as directed Additional Instructions: Take the medications as prescribed. Call your primary care provider today, 12/16/2024, to make arrangements for follow-up appointment for further evaluation management. Monitor your blood sugar closely while taking the short-term steroid. Prescriptions: Prednisone 10 mg [Deltasone 10 mg] 10 mg PO TID #12 tablet Orphenadrine Citrate 100 mg [Norflex 100 MG Tablet] 100 mg PO BID #10 tab
[2024-12-16 11:56] VITALS: TEMP 97.5
[2024-12-16 12:16] LABS: Appearance CLEAR (CLEAR); Bilirubin NEGATIVE (NEGATIVE); Glucose >=1000 mg/dL (NEGATIVE); Ketones NEGATIVE (NEGATIVE); Nitrite NEGATIVE (NEGATIVE); Ph 5.5 (5-6); Protein,Urine Dip NEGATIVE (Negative); RBC NEGATIVE Ery/ul (0-5); Urobilinogen 0.2 mg/dL (0-1)
[2024-12-16 12:25] LABS: Bacteria Few /HPF (None Seen); Epithelial Cells Few /HPF (None Seen); RBC NONE SEEN /HPF (0-5); WBC 0-2 /HPF (0-5)
[2024-12-16] MEDS ORDERED: PERCOCET TABLET 5/325MG ONE (12:29)
[2024-12-16] MEDS ORDERED: Sterile H2O 10 ml IJ ONE (12:29)
[2024-12-16] MEDS ORDERED: Norflex 60 MG/2 ML ONE (12:29)
[2024-12-16] MEDS ORDERED: solu-MEDROL ONE (12:29)
[2024-12-16] MEDS: PERCOCET TABLET 5/325MG PO STA (12:32)
[2024-12-16] MEDS: Norflex 60 MG/2 ML IM ONE (12:35)
[2024-12-16] MEDS: solu-MEDROL 125 MG, Sterile H2O 10 ml 2 ML IM ONE (12:37)
--- NOTE | 2024-12-16 13:13 | XRAY ---
Indication: Pain following fall. Comparison: CT lumbar spine May 21, 2024 5 view lumbar spine again demonstrates normal lumbar lordosis, minimal dextroscoliosis, nonobstructing 5 mm left renal calculus, mild aortic calcifications, and mild diffuse colonic fecal debris. No new/acute abnormalities.
[2024-12-16 13:35] VITALS: BP 101/65; PULSE 70; RESP 16; O2SAT 97
== END 2024-12-16 13:32 | disposition home or self-care (01) ==
LOC: ED 11:25
DX: G89.29 Other chronic pain (principal); M54.50 Low back pain, unspecified; M54.31 Sciatica, right side; E11.9 Type 2 diabetes mellitus without complications; E78.5 Hyperlipidemia, unspecified; I10 Essential (primary) hypertension; Z79.02 Long term (current) use of antithrombotics/antiplatelets; Z79.4 Long term (current) use of insulin; Z79.84 Long term (current) use of oral hypoglycemic drugs; Z79.52 Long term (current) use of systemic steroids; Z79.899 Other long term (current) drug therapy; Z72.0 Tobacco use; Z63.8 Other specified problems related to primary support group
CPT/HCPCS: 72110; 81015; 96372; 99284; J2360; J2919; A9270-GY

== ENCOUNTER 2025-01-16 16:50 | Emergency (ER) | payer OTHER ==
[2025-01-16 17:52] VITALS: PULSE 70; RESP 18; TEMP 96.9
[2025-01-16] MEDS ORDERED: TORAdol 30 mg Injection ONE (18:04)
[2025-01-16] MEDS ORDERED: Vibramycin 100 MG ONE (18:05)
[2025-01-16] MEDS: Vibramycin 100 MG PO ONE (18:08)
[2025-01-16] MEDS: TORAdol 30 mg Injection IM ONE (18:09)
[2025-01-16 18:53] VITALS: BP 110/62
[2025-01-16 18:55] VITALS: O2SAT 99
--- NOTE | 2025-01-16 18:55 | ERPHSYRPT ---
- History of Present Illness Time Seen by Provider: 01/16/25 17:42 Source: patient Exam Limitations: no limitations Patient Subjective Stated Complaint: C/O "I think I might have Lyme Disease". Patient reports that she went mushroom hunting a few weeks ago and found 6 ticks on her afterwards. C/O fatigue. Noticed a rash to her abdomen this am. Triage Nursing Assessment: Patient ambulated back to ER. She is alert and oriented. Patient does have a target rash to the left side of her abdomen. No SOB. Physician History: 49-year-old with history of diabetes mellitus fairly controlled presented in the ER after she noticed a rash on her abdomen. Patient reports [place] few [place] and had multiple ticks removed that day. Patient reports generalized feelings of aches and pains all over. No fever or chills reported. Patient also jumped out of 4 x 4 4 days ago and complaining of some pain and bruising in the right foot/ankle area but no difficulty ambulation. Allergies/Adverse Reactions: No Known Drug Allergies Allergy (Verified 01/16/25 17:41) Home Medications: Clopidogrel Bisulfate [Clopidogrel] 75 mg PO DAILY 01/29/24 [History] Insulin Aspart 1 unit SQ TID 01/29/24 [History] clonazePAM [Clonazepam] 1 mg PO TID 01/29/24 [History] Aspirin EC 81 mg [Ecotrin 81 mg] 81 mg PO DAILY 05/29/24 [History] Insulin Glargine [Lantus Insulin] 8 units SQ DAILY 10/24/24 [History] Lidocaine HCl 5% Patch [Lidoderm Patch 5%] 1 patch TP BID PRN PRN 10/24/24 [History] Metformin HCl 500 mg [Glucophage 500 MG] 1,500 mg PO DAILY 10/24/24 [History] Levothyroxine Sodium 137 mcg PO DAILY 01/16/25 [History] Hx Tetanus, Diphtheria Vaccination/Date Given: Yes Hx Influenza Vaccination/Date Given: No Hx Pneumococcal Vaccination/Date Given: No Travel Risk - International Travel Have you traveled outside of the country in past 3 weeks: No - Emerging Infectious Disease Are you exhibiting symptoms associated with any current EIDs: No Symptoms: Headaches/Body Aches/ - Review of Systems Constitutional: Fatigue Ears, Nose, & Throat: No Symptoms Respiratory: No Symptoms Cardiac: No Symptoms Abdominal/Gastrointestinal: No Symptoms Musculoskeletal: Injury, Joint Pain Skin: Rash, Skin Lesions Neurological: No Symptoms Endocrine: No Symptoms Hematologic/Lymphatic: No Symptoms - Past Medical History Pertinent Past Medical History: Yes Cardiac History: High Cholesterol, Hypertension, Myocardial Infarction ([place]) Endocrine Medical History: Diabetes Type II, Hypothyroidism Psycho-Social History: Anxiety, Bipolar, Other Other Medical History: dormant TB - Past Surgical History Past Surgical History: Yes Cardiac: Cardiac Catheterization Gastrointestinal: Appendectomy Female Surgical History: Section Other Surgical History: cyst - Female History Hx Last Menstrual Period: ablation Hx Now: No - Social History Smoking Status: Current every day smoker How long have you smoked: 30 years Exposure to second hand smoke: Yes Drug Use: marijuana - Social Determinants of Health Will the patient participate in the screening: Yes Do you worry about a steady place to live?: No Do you have any problems with any of the following?: No known problems In the past 12 months,have you had to go without utilities?: No Transportation Issues: No Has anyone in your support network made you feel unsafe?: No Have you or anyone in your house had to go w/o enough food: No - Nursing Vital Signs Nursing Vital Signs: Initial Vital Signs Temperature 96.9 F 01/16/25 17:35 Pulse Rate 70 01/16/25 17:35 Respiratory Rate 18 01/16/25 17:35 Blood Pressure 114/55 01/16/25 17:35 O2 Sat by Pulse Oximetry 99 01/16/25 17:35 Pain Scale Pain Intensity 9 - Physical Exam General Appearance: no apparent distress, alert, anxiety Ears, Nose, Throat Exam: normal ENT inspection Neck Exam: normal inspection, non-tender, supple, full range of motion Respiratory Exam: normal breath sounds, lungs clear Cardiovascular Exam: regular rate/rhythm, normal heart sounds Gastrointestinal/Abdomen Exam: soft, normal bowel sounds, No tenderness Extremity Exam: normal range of motion, tenderness (Right proximal lateral foot tenderness and bruising. Intact distal neurovascular. 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 Skin Exam: normal color, rash (Rash left upper abdomen with central clearing and erythematous upper skagit around/bull's-eye appearance/erythema migrans) SpO2 Interpretation: normal SpO2: 99 O2 Delivery: Room Air Ordered Tests: Medication Summary Discontinued Medications Generic Name Dose Route Start Last Admin Trade Name Axel PRN Reason Stop Dose Admin Doxycycline Hyclate 100 mg 01/16/25 17:57 01/16/25 18:08 Doxycycline Hyclate 100 Mg Tablet PO 01/16/25 17:58 100 mg STAT ONE Administration Doxycycline Hyclate Confirm 01/16/25 18:05 Doxycycline Hyclate 100 Mg Tablet Administered 01/16/25 18:06 Dose 100 mg .ROUTE .STK-MED ONE Ketorolac Tromethamine 30 mg 01/16/25 17:57 01/16/25 18:09 Ketorolac Tromethamine 30 Mg/Ml Inj IM 01/16/25 17:58 30 mg STAT ONE Administration Ketorolac Tromethamine Confirm 01/16/25 18:04 Ketorolac Tromethamine 30 Mg/Ml Inj Administered 01/16/25 18:05 Dose 30 mg .ROUTE .STK-MED ONE - Progress Progress: unchanged Progress Note: 01/16/25 19:07 Differential diagnosis includes but not limited to: Lyme disease, [place] spotted fever, rickettsial, erythema nodosum, contact dermatitis, ringworm, foot fracture, contusion, foot sprain 49-year-old is evaluated in the ER for target lesion in the left upper abdomen after she was in [place] for a few days and have subjective feelings of aches and pains all over. She is not in any distress. Tick panel is ordered and patient is started on doxycycline. She has no chest pain or difficulty breathing, no swelling of joints. She has some tenderness in the right lateral foot, offered x-rays which she declined. Has no tenderness in the ankle. It is possible patient has foot sprain, recommended Tylenol/ibuprofen and outpatient follow-up. She has no difficulty ambulation. Discussed signs symptoms of worsening needing return to ER which she seems understanding. Complexity of problems addressed: Moderate acute Complexity of data reviewed/analyzed: Limited Risk of complication: Low risk Counseled pt/family regarding: lab results, diagnosis, need for follow-up Medical Desision Making - Independent Historian Additional History obtained from: Spouse - Diagnostic Testing Diagnostic test were ordered, analyzed, and reviewed by me: Yes - Risk of complications The pt has a mod risk of morbidity or mortality based on: Need for prescription drug management - Departure Departure Disposition: Home Clinical Impression: Tick bite of abdomen, Foot sprain Condition: Stable Critical Care Time: No Referrals: THUY VALDEZ MD [Primary Care Provider, [facility]] - Follow up with PCP 1 day Instructions: Insect Bites and Stings ([place]) Additional Instructions: Take Tylenol/ibuprofen as needed. Follow-up with primary care for reevaluation. Weightbearing as tolerated. Follow-up with orthopedics for reevaluation if pain in the foot does not go away. Return to ER for worsening of rash or if develop fever chills, joint swelling, chest pain palpitations or shortness of breath etc. Prescriptions: Doxycycline Hyclate 100 mg [Vibramycin 100 MG] 100 mg PO BID 10 Days #20 tab
== END 2025-01-16 19:24 | disposition home or self-care (01) ==
LOC: ED 16:50
DX: S30.861A Insect bite (nonvenomous) of abdominal wall, initial encounter (principal); W57.XXXA Bitten or stung by nonvenomous insect and other nonvenomous arthropods, initial encounter; Y92.821 Forest as the place of occurrence of the external cause; S93.601A Unspecified sprain of right foot, initial encounter; Y93.39 Activity, other involving climbing, rappelling and jumping off; Z79.02 Long term (current) use of antithrombotics/antiplatelets; Z79.4 Long term (current) use of insulin; Z79.84 Long term (current) use of oral hypoglycemic drugs; Z79.899 Other long term (current) drug therapy; Z72.0 Tobacco use
CPT/HCPCS: 36415; 96372; 99283; J1885; A9270-GY

== ENCOUNTER 2025-05-21 08:38 | Emergency (ER) | payer OTHER ==
[2025-05-21] MEDS ORDERED: Zofran 4 MG/2 ML VIAL ONE (09:07)
[2025-05-21] MEDS: Zofran 4 MG/2 ML VIAL IV ONE (09:10)
[2025-05-21] MEDS ORDERED: PROVENTIL 2.5 MG/3 ML NEB IH ONE ×2 (09:11→10:44)
[2025-05-21] MEDS: PROVENTIL 2.5 MG/3 ML NEB IH ONE ×2 (09:13→10:48)
--- NOTE | 2025-05-21 09:14 | ERPHSYRPT ---
- History of Present Illness Time Seen by Provider: 05/21/25 08:44 Source: patient Exam Limitations: no limitations Physician History: 50-year-old female presents to the emergency room with cough congestion URI symptoms for the past week reports positive sick contacts at [facility], reports nausea denies any vomiting or diarrhea denies abdominal pain or chest pain denies any urinary symptoms or flank pain patient is now in ED for further eval Timing/Duration: day(s) (2-3) Severity: mild Associated Symptoms: shortness of breath Allergies/Adverse Reactions: Penicillins Allergy (Unknown, Verified 05/21/25 08:52) Home Medications: Clopidogrel Bisulfate [Clopidogrel] 75 mg PO DAILY 01/29/24 [History] Insulin Aspart 1 unit SQ TID 01/29/24 [History] clonazePAM [Clonazepam] 1 mg PO TID 01/29/24 [History] Aspirin EC 81 mg [Ecotrin 81 mg] 81 mg PO DAILY 05/29/24 [History] Insulin Glargine [Lantus Insulin] 8 units SQ DAILY 10/24/24 [History] Lidocaine HCl 5% Patch [Lidoderm Patch 5%] 1 patch TP BID PRN PRN 10/24/24 [History] Metformin HCl 500 mg [Glucophage 500 MG] 1,500 mg PO DAILY 10/24/24 [History] Levothyroxine Sodium 137 mcg PO DAILY 01/16/25 [History] Hx Tetanus, Diphtheria Vaccination/Date Given: Yes Hx Influenza Vaccination/Date Given: No Hx Pneumococcal Vaccination/Date Given: No Travel Risk - Emerging Infectious Disease Are you exhibiting symptoms associated with any current EIDs: No Symptoms: Headaches/Body Aches/ - Review of Systems Constitutional: No Fever, No Chills Eyes: No Symptoms Ears, Nose, & Throat: No Symptoms Respiratory: Cough, Dyspnea Cardiac: No Chest Pain, No Edema, No Syncope Abdominal/Gastrointestinal: No Abdominal Pain, No Nausea, No Vomiting, No Diarrhea Genitourinary Symptoms: No Dysuria Musculoskeletal: No Back Pain, No Neck Pain Skin: No Rash Neurological: No Dizziness, No Focal Weakness, No Sensory Changes Psychological: No Symptoms Endocrine: No Symptoms All Other Systems: Reviewed and Negative - Past Medical History Pertinent Past Medical History: Yes Cardiac History: High Cholesterol, Hypertension, Myocardial Infarction ([place]) Endocrine Medical History: Diabetes Type II, Hypothyroidism Psycho-Social History: Anxiety, Bipolar, Other Other Medical History: dormant TB - Past Surgical History Past Surgical History: Yes Cardiac: Cardiac Catheterization Gastrointestinal: Appendectomy Female Surgical History: Section Other Surgical History: cyst - Female History Hx Last Menstrual Period: ablation - Social History Smoking Status: Current every day smoker How long have you smoked: 30 years Exposure to second hand smoke: Yes Drug Use: marijuana - Social Determinants of Health Will the patient participate in the screening: Declined to provide - Nursing Vital Signs Nursing Vital Signs: Initial Vital Signs Temperature 97.4 F 05/21/25 08:38 Pulse Rate 91 H 05/21/25 08:38 Respiratory Rate 26 H 05/21/25 08:38 Blood Pressure 109/81 05/21/25 08:38 O2 Sat by Pulse Oximetry 99 05/21/25 08:38 Pain Scale Pain Intensity 6 - Physical Exam General Appearance: no apparent distress, alert Eye Exam: PERRL/EOMI, eyes nml inspection Ears, Nose, Throat Exam: normal ENT inspection, TMs normal, pharynx normal, moist mucous membranes Neck Exam: normal inspection, non-tender, supple, full range of motion Respiratory Exam: wheezing, other (diminshed breath sounds at the bases with some end expiratory wheezing), No respiratory distress Cardiovascular Exam: regular rate/rhythm, normal heart sounds, normal peripheral pulses Gastrointestinal/Abdomen Exam: soft, normal bowel sounds, No tenderness, No mass Back Exam: normal inspection, normal range of motion, No CVA tenderness, No vertebral tenderness Extremity Exam: normal inspection, normal range of motion, pelvis stable Neurologic Exam: alert, oriented x 3, cooperative, normal mood/affect, nml cerebellar function, nml station & gait, sensation nml, No motor deficits Skin Exam: normal color, warm, dry, No rash Lymphatic Exam: No adenopathy - Course Nursing assessment & vital signs reviewed: Yes EKG Interpreted by Me: RATE ([id number]), Sinus Rhythm, Non-specific ST Changes, Other (no STEMI ) Ordered Tests: Active Orders 24 hr Category Date Time Status Shop Tailor STAT Care 05/21/25 08:52 Active EKG-ER Only STAT Care 05/21/25 09:13 Completed IV Insertion STAT Care 05/21/25 08:51 Completed POCT Glucose Check STAT Care 05/21/25 08:44 Active Pulse Oximetry (ED) STAT Care 05/21/25 08:51 Completed CHEST 1 VIEW (PORTABLE) Stat Exams 05/21/25 08:51 Completed CBC W DIFF Stat Lab 05/21/25 09:30 Completed CMP Stat Lab 05/21/25 09:30 Completed MAGNESIUM Stat Lab 05/21/25 09:30 Completed POCT GLUCOSE Stat Lab 05/21/25 08:47 Completed TSH, 3RD Generation Stat Lab 05/21/25 09:30 Completed UA W/RFX UR CULTURE Stat Lab 05/21/25 09:38 Completed Medication Summary Discontinued Medications Generic Name Dose Route Start Last Admin Trade Name Robsonq PRN Reason Stop Dose Admin Albuterol Sulfate 2.5 mg 05/21/25 09:02 05/21/25 09:13 Albuterol Sulfate 2.5 Mg/3 Ml Neb 05/21/25 09:03 2.5 mg STAT ONE Administration Albuterol Sulfate Confirm 05/21/25 09:11 Albuterol Sulfate 2.5 Mg/3 Ml Neb Administered 05/21/25 09:12 Dose 2.5 mg IH .STK-MED ONE Albuterol Sulfate 2.5 mg 05/21/25 10:35 05/21/25 11:05 Albuterol Solution 2.5 Mg/0.5 Ml Ud Solution 05/21/25 10:36 Not Given STAT ONE Albuterol Sulfate Confirm 05/21/25 10:44 Albuterol Sulfate 2.5 Mg/3 Ml Neb Administered 05/21/25 10:45 Dose 2.5 mg IH .STK-MED ONE Albuterol Sulfate 2.5 mg 05/21/25 10:48 05/21/25 10:48 Albuterol Sulfate 2.5 Mg/3 Ml Neb 05/21/25 10:49 2.5 mg STAT ONE Administration Sodium Chloride 1,000 mls @ 999 mls/hr 05/21/25 09:03 05/21/25 10:56 Sodium Chloride 0.9% 1000 Ml IV 05/21/25 10:03 Infused .Q1H1M STA Infusion Sodium Chloride Confirm 05/21/25 09:07 Sodium Chloride 0.9% 1000 Ml Administered 05/21/25 09:08 Dose 1,000 mls @ ud .ROUTE .STK-MED ONE Ondansetron HCl 4 mg 05/21/25 09:04 05/21/25 09:10 Ondansetron Hcl 4 Mg/2 Ml Vial IV 05/21/25 09:05 4 mg STAT ONE Administration Ondansetron HCl Confirm 05/21/25 09:07 Ondansetron Hcl 4 Mg/2 Ml Vial Administered 05/21/25 09:08 Dose 4 mg .ROUTE .STK-MED ONE Prednisone 60 mg 05/21/25 10:35 05/21/25 10:38 Prednisone 20 Mg Tablet PO 05/21/25 10:36 60 mg STAT ONE Administration Prednisone Confirm 05/21/25 10:37 Prednisone 20 Mg Tablet Administered 05/21/25 10:38 Dose 60 mg .ROUTE .STK-MED ONE Lab/Rad Data: Laboratory Result Diagrams 05/21/25 09:30 05/21/25 09:30 Laboratory Results 05/21/25 05/21/25 05/21/25 Range/Units Unknown 09:38 09:30 WBC (3.98-10.04) x10^3/uL RBC (3.93-5.22) x10^6/uL Hgb (11.2-15.7) g/dL Hct (34.1-44.9) % MCV (79.4-94.8) fL MCH (25.6-32.2) pg MCHC (32.2-35.5) g/dL RDW (11.7-14.4) % Plt Count (182-369) x10^3/uL MPV (9.4-12.3) fL Gran % (34.0-71.1) % Immature Gran % (Auto) (0.001-0.429) % Nucleat RBC Rel Count (0.00-0.2) % Eos # (Auto) (0.04-0.36) x10^3/uL Immature Gran # (Auto) (0.001-0.031) x10^3u/L Absolute Lymphs (auto) (1.18-3.74) x10^3/uL Absolute Monos (auto) (0.24-0.86) x10^3/uL Absolute Nucleated RBC (0.00-0.012) x10^3u/L Lymphocytes % (19.3-51.7) % Monocytes % (4.7-12.5) % Eosinophils % (0.7-5.8) % Basophils % (0.1-1.2) % Absolute Granulocytes (1.56-6.13) x10^3/uL Basophils # (0.01-0.08) x10^3/uL Sodium 136 (135-145) mmol/L Potassium 4.5 (3.5-5.1) mmol/L Chloride 104 (98-107) mmol/L Carbon Dioxide 24 (22-30) mmol/L Anion Gap 12.1 (5-15) MEQ/L BUN 12 (7-17) mg/dL Creatinine 0.51 L (0.52-1.04) mg/dL Estimated GFR 112.2 ML/MIN Glucose 198 H (74-106) mg/dL POC Glucometer (74 to 106) mg/dL Calcium 8.5 (8.4-10.2) mg/dL Magnesium 1.9 (1.6-2.3) mg/dL Total Bilirubin 0.40 (0.2-1.3) mg/dL AST 29 (14-36) U/L ALT 19 (0-35) U/L Alkaline Phosphatase 112 (38-126) U/L Serum Total Protein 6.6 (6.3-8.2) g/dL Albumin 4.0 (3.5-5.0) g/dL TSH 3rd Generation < 0.015 L (0.470-4.680) mIU/L Urine Color Yellow (Yellow) Urine Appearance Clear (Clear) Urine pH 5.5 (4.6-8.0) Ur Specific [place] >=1.030 A (1.005-1.030) Urine Protein Negative (Negative) Urine Glucose (UA) >=1000 A (Negative) mg/dL Urine Ketones Trace A (Negative) Urine Blood Negative (Negative) Urine Nitrite Negative (Negative) Urine Bilirubin Negative (Negative) Urine Urobilinogen 0.2 (0.2) mg/dL Ur Leukocyte Esterase Negative (Negative) U Hyaline Cast (Auto) NONE SEEN (0-2) /LPF Urine Microscopic RBC 0-2 (0-5) /HPF Urine Microscopic WBC 3-5 (0-5) /HPF Ur Epithelial Cells Rare (None Seen) /HPF Urine Bacteria None Seen (None Seen) /HPF Urine Culture Reflexed NO (NO) Influenza Type A Ag NEGATIVE (NEGATIVE) Influenza Type B Ag NEGATIVE (NEGATIVE) RSV (PCR) NEGATIVE (NEGATIVE) SARS-CoV-2 (PCR) NEGATIVE (NEGATIVE) 05/21/25 05/21/25 Range/Units 09:30 08:47 WBC 5.5 (3.98-10.04) x10^3/uL RBC 4.85 (3.93-5.22) x10^6/uL Hgb 14.9 (11.2-15.7) g/dL Hct 45.9 H (34.1-44.9) % MCV 94.6 (79.4-94.8) fL MCH 30.7 (25.6-32.2) pg MCHC 32.5 (32.2-35.5) g/dL RDW 12.7 (11.7-14.4) % Plt Count 201 (182-369) x10^3/uL MPV 9.2 L (9.4-12.3) fL Gran % 66.6 (34.0-71.1) % Immature Gran % (Auto) 0.2 (0.001-0.429) % Nucleat RBC Rel Count 0.0 (0.00-0.2) % Eos # (Auto) 0.06 (0.04-0.36) x10^3/uL Immature Gran # (Auto) 0.01 (0.001-0.031) x10^3u/L Absolute Lymphs (auto) 1.31 (1.18-3.74) x10^3/uL Absolute Monos (auto) 0.41 (0.24-0.86) x10^3/uL Absolute Nucleated RBC 0.00 (0.00-0.012) x10^3u/L Lymphocytes % 23.9 (19.3-51.7) % Monocytes % 7.5 (4.7-12.5) % Eosinophils % 1.1 (0.7-5.8) % Basophils % 0.7 (0.1-1.2) % Absolute Granulocytes 3.66 (1.56-6.13) x10^3/uL Basophils # 0.04 (0.01-0.08) x10^3/uL Sodium (135-145) mmol/L Potassium (3.5-5.1) mmol/L Chloride (98-107) mmol/L Carbon Dioxide (22-30) mmol/L Anion Gap (5-15) MEQ/L BUN (7-17) mg/dL Creatinine (0.52-1.04) mg/dL Estimated GFR ML/MIN Glucose (74-106) mg/dL POC Glucometer 182 H (74 to 106) mg/dL Calcium (8.4-10.2) mg/dL Magnesium (1.6-2.3) mg/dL Total Bilirubin (0.2-1.3) mg/dL AST (14-36) U/L ALT (0-35) U/L Alkaline Phosphatase (38-126) U/L Serum Total Protein (6.3-8.2) g/dL Albumin (3.5-5.0) g/dL TSH 3rd Generation (0.470-4.680) mIU/L Urine Color (Yellow) Urine Appearance (Clear) Urine pH (4.6-8.0) Ur Specific [place] (1.005-1.030) Urine Protein (Negative) Urine Glucose (UA) (Negative) mg/dL Urine Ketones (Negative) Urine Blood (Negative) Urine Nitrite (Negative) Urine Bilirubin (Negative) Urine Urobilinogen (0.2) mg/dL Ur Leukocyte Esterase (Negative) U Hyaline Cast (Auto) (0-2) /LPF Urine Microscopic RBC (0-5) /HPF Urine Microscopic WBC (0-5) /HPF Ur Epithelial Cells (None Seen) /HPF Urine Bacteria (None Seen) /HPF Urine Culture Reflexed (NO) Influenza Type A Ag (NEGATIVE) Influenza Type B Ag (NEGATIVE) RSV (PCR) (NEGATIVE) SARS-CoV-2 (PCR) (NEGATIVE) - Progress Progress Note: 05/21/25 11:20 Improved after the breathing treatments and steroids patient's swabs were within normal limits patient be sent home with albuterol nebulizer prescription as well as 5-day course of prednisone recommend close return precautions patient be discharged at this time 05/21/25 11:21 Comparison: October 24, 2024 Portable chest again hyperinflated and clear. Heart not enlarged. Bony thorax intact again with tiny foreign body overlying T3. No new/acute findings. - Departure Departure Disposition: Home Clinical Impression: URI (upper respiratory infection) Qualifiers: URI type: unspecified URI Qualified Code(s): J06.9 - Acute upper respiratory infection, unspecified Reactive airway disease Qualifiers: Asthma severity: unspecified severity Asthma persistence: unspecified Condition: Stable Critical Care Time: No Referrals: THUY VALDEZ MD [Primary Care Provider, [facility]] - Follow up/PCP as directed Instructions: Upper respiratory infection in adults - ED discharge instructions, Acute bronchitis in adults Prescriptions: Albuterol 2.5 mg/3 ml Neb [Proventil 2.5 mg/3 ml Neb] 2.5 mg IH Q6H PRN PRN 5 Days #60 ml PRN Reason: Shortness Of Breath/Wheezing Nebulizer Accessories [A.i.r.s. Nebulizer] 1 each MC DAILY PRN 1 Days #1 kit PRN Reason: Shortness Of Breath/Wheezing Nebulizer 1 each MC DAILY PRN #1 unit PRN Reason: Shortness Of Breath/Wheezing Nebulizer 1 each MC DAILY 1 Days #1 predniSONE [Prednisone] 50 mg PO DAILY 5 Days #5 tablet
[2025-05-21 09:18] VITALS: TEMP 97.4
[2025-05-21 09:41] LABS: BASOPHIL % 0.7 % (0.1-1.2); Basophil (Absolute #) 0.04 x10^3/uL (0.01-0.08); Eosinophil (Absolute #) 0.06 x10^3/uL (0.04-0.36); Hematocrit 45.9 % (34.1-44.9); Hemoglobin 14.9 g/dL (11.2-15.7); IMMATURE GRAN # 0.01 x10^3u/L (0.001-0.031); IMMATURE GRAN % 0.2 % (0.001-0.429); Lymphocyte (Absolute #) 1.31 x10^3/uL (1.18-3.74); Mean Corpuscular Hemoglobin 30.7 pg (25.6-32.2); Mean Corpuscular Hgb Concent. 32.5 g/dL (32.2-35.5); Monocyte (Absolute #) 0.41 x10^3/uL (0.24-0.86); NUCLEATED RBC # 0.00 x10^3u/L (0.00-0.012); NUCLEATED RBC % 0.0 % (0.00-0.2); Platelet Count 201 x10^3/uL (182-369); Red Blood Count 4.85 x10^6/uL (3.93-5.22); White Blood Count 5.5 x10^3/uL (3.98-10.04)
--- NOTE | 2025-05-21 09:44 | XRAY ---
Indication: Cough. Comparison: October 24, 2024 Portable chest again hyperinflated and clear. Heart not enlarged. Bony thorax intact again with tiny foreign body overlying T3. No new/acute findings.
[2025-05-21 09:46] LABS: Glucose, Urine >=1000 mg/dL (Negative); Protein,Urine Dip Negative (Negative); RBC 0-2 /HPF (0-5)
[2025-05-21 10:27] LABS: INFLUENZA A NEGATIVE (NEGATIVE); INFLUENZA B NEGATIVE (NEGATIVE); RESPIRATORY SYNCTIAL VIRUS NEGATIVE (NEGATIVE); SARS-CoV-2 Xpert Express NEGATIVE (NEGATIVE)
[2025-05-21 10:33] LABS: Calcium 8.5 mg/dL (8.4-10.2); Carbon Dioxide 24 mmol/L (22-30); Creatinine 1 0.51 mg/dL (0.52-1.04); EST GLOMERULAR FILTRATION RATE 112.2 ML/MIN; Glucose 198 mg/dL (74-106); Potassium 4.5 mmol/L (3.5-5.1); SGOT/AST 29 U/L (14-36); SGPT/ALT 19 U/L (0-35); Total Protein 6.6 g/dL (6.3-8.2)
[2025-05-21] MEDS ORDERED: DELTASONE 20 MG ONE (10:37)
[2025-05-21] MEDS: DELTASONE 20 MG PO ONE (10:38)
[2025-05-21] MEDS: PROVENTIL Solution 2.5 MG/0.5 ML IH ONE (11:05)
[2025-05-21 11:09] VITALS: RESP 16; O2SAT 99
[2025-05-21 12:00] VITALS: BP 134/69; PULSE 80
== END 2025-05-21 12:00 | disposition home or self-care (01) ==
LOC: ED 08:38
DX: J06.9 Acute upper respiratory infection, unspecified (principal); J45.909 Unspecified asthma, uncomplicated; R05.1 Acute cough; R11.0 Nausea; I10 Essential (primary) hypertension; E11.9 Type 2 diabetes mellitus without complications; Z79.52 Long term (current) use of systemic steroids; Z79.02 Long term (current) use of antithrombotics/antiplatelets; Z79.4 Long term (current) use of insulin; Z79.84 Long term (current) use of oral hypoglycemic drugs; Z79.899 Other long term (current) drug therapy; Z72.0 Tobacco use

== ENCOUNTER 2025-07-14 12:50 | Emergency (ER) | payer OTHER ==
[2025-07-14 13:29] LABS: Glucose, Urine >=1000 mg/dL (Negative); Protein,Urine Dip Negative (Negative); RBC 0-2 /HPF (0-5); WBC 0-2 /HPF (0-5)
--- NOTE | 2025-07-14 13:33 | ERPHSYRPT ---
- History of Present Illness Physician History: Night sweats, patient was concerned she maybe in DKA, she states her sugars have been controlled via her [employer] Pump, she states that she may be in menopause she is not sure, she has not been taking very good care of herself, no recent change in any medications Timing/Duration: day(s) (1) Associated Symptoms: denies symptoms Allergies/Adverse Reactions: Penicillins Allergy (Unknown, Verified 07/14/25 13:04) pt has never had Home Medications: Clopidogrel Bisulfate [Clopidogrel] 75 mg PO DAILY 01/29/24 [History] Insulin Aspart 1 unit SQ TID 01/29/24 [History] clonazePAM [Clonazepam] 1 mg PO TID 01/29/24 [History] Aspirin EC 81 mg [Ecotrin 81 mg] 81 mg PO DAILY 05/29/24 [History] Insulin Glargine [Lantus Insulin] 8 units SQ DAILY 10/24/24 [History] Levothyroxine Sodium 125 mcg PO DAILY 01/16/25 [History] Empagliflozin [Jardiance] 1 ea DAILY 07/14/25 [History] Metoprolol Tartrate 25 mg [Lopressor 25MG Tab] 12.5 mg PO UD 07/14/25 [History] Hx Tetanus, Diphtheria Vaccination/Date Given: Yes Hx Influenza Vaccination/Date Given: No Hx Pneumococcal Vaccination/Date Given: No Travel Risk - Emerging Infectious Disease Are you exhibiting symptoms associated with any current EIDs: No Symptoms: Headaches/Body Aches/ - Past Medical History Pertinent Past Medical History: Yes Cardiac History: High Cholesterol, Hypertension, Myocardial Infarction ([place]) Endocrine Medical History: Diabetes Type II, Hypothyroidism Psycho-Social History: Anxiety, Bipolar, Other Other Medical History: dormant TB, 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 - Past Surgical History Past Surgical History: Yes Cardiac: Cardiac Catheterization Gastrointestinal: Appendectomy Musculoskeletal: Orthopedic Surgery Female Surgical History: Section Other Surgical History: cyst - Female History Hx Last Menstrual Period: ablation - Social History Smoking Status: Current every day smoker How long have you smoked: 30 years Exposure to second hand smoke: Yes Drug Use: marijuana - Social Determinants of Health Will the patient participate in the screening: Declined to provide - Nursing Vital Signs Nursing Vital Signs: Initial Vital Signs Temperature 98.2 F 07/14/25 13:00 Pulse Rate 99 H 07/14/25 13:00 Respiratory Rate 18 07/14/25 13:00 Blood Pressure 138/100 07/14/25 13:00 O2 Sat by Pulse Oximetry 100 07/14/25 13:00 Pain Scale Pain Intensity 0 - Physical Exam General Appearance: no apparent distress, alert Eye Exam: PERRL/EOMI, eyes nml inspection Ears, Nose, Throat Exam: normal ENT inspection, TMs normal, pharynx normal, moist mucous membranes Neck Exam: normal inspection, non-tender, supple, full range of motion Respiratory Exam: normal breath sounds, lungs clear, No respiratory distress Cardiovascular Exam: regular rate/rhythm, normal heart sounds, normal peripheral pulses Gastrointestinal/Abdomen Exam: soft, normal bowel sounds, No tenderness, No mass Back Exam: normal inspection, normal range of motion, No CVA tenderness, No vertebral tenderness Extremity Exam: normal inspection, normal range of motion, pelvis stable Neurologic Exam: alert, oriented x 3, cooperative, normal mood/affect, nml cerebellar function, nml station & gait, sensation nml, No motor deficits Skin Exam: normal color, warm, dry, No rash Lymphatic Exam: No adenopathy SpO2 Interpretation: normal SpO2: 98 Ordered Tests: Active Orders 24 hr Category Date Time Status IV Insertion STAT Care 07/14/25 13:16 Active ACO SDOH Referral ONCE Cons 07/14/25 13:35 Active CBC W DIFF Stat Lab 07/14/25 13:25 Completed CMP Stat Lab 07/14/25 13:25 Completed POCT GLUCOSE Stat Lab 07/14/25 13:08 Completed UA W/RFX UR CULTURE Stat Lab 07/14/25 13:15 Completed VENOUS BLOOD GAS Urgent Lab 07/14/25 13:25 Completed Medication Summary Discontinued Medications Generic Name Dose Route Start Last Admin Trade Name Freq PRN Reason Stop Dose Admin Sodium Chloride 1,000 mls @ 999 mls/hr 07/14/25 13:16 07/14/25 13:43 Sodium Chloride 0.9% 1000 Ml IV 07/14/25 14:16 999 mls/hr .Q1H1M STA Administration Sodium Chloride Confirm 07/14/25 13:19 Sodium Chloride 0.9% 1000 Ml Administered 07/14/25 13:20 Dose 1,000 mls @ ud .ROUTE .STK-MED ONE Lab/Rad Data: Laboratory Result Diagrams 07/14/25 13:25 07/14/25 13:25 Laboratory Results 07/14/25 07/14/25 07/14/25 Range/Units 13:25 13:25 13:25 WBC 5.1 (3.98-10.04) x10^3/uL RBC 4.84 (3.93-5.22) x10^6/uL Hgb 14.9 (11.2-15.7) g/dL Hct 45.5 H (34.1-44.9) % MCV 94.0 (79.4-94.8) fL MCH 30.8 (25.6-32.2) pg MCHC 32.7 (32.2-35.5) g/dL RDW 12.5 (11.7-14.4) % Plt Count 243 (182-369) x10^3/uL MPV 9.2 L (9.4-12.3) fL Gran % 61.1 (34.0-71.1) % Immature Gran % (Auto) 0.0 L (0.001-0.429) % Nucleat RBC Rel Count 0.0 (0.00-0.2) % Eos # (Auto) 0.03 L (0.04-0.36) x10^3/uL Immature Gran # (Auto) 0.00 L (0.001-0.031) x10^3u/L Absolute Lymphs (auto) 1.43 (1.18-3.74) x10^3/uL Absolute Monos (auto) 0.47 (0.24-0.86) x10^3/uL Absolute Nucleated RBC 0.00 (0.00-0.012) x10^3u/L Lymphocytes % 27.8 (19.3-51.7) % Monocytes % 9.1 (4.7-12.5) % Eosinophils % 0.6 L (0.7-5.8) % Basophils % 1.4 H (0.1-1.2) % Absolute Granulocytes 3.14 (1.56-6.13) x10^3/uL Basophils # 0.07 (0.01-0.08) x10^3/uL pO2/FiO2 Ratio 21.0 % VBG pH 7.41 (7.32-7.42) VBG pCO2 at Pat Temp 44 (42-55) mm/Hg VBG pO2 at Pat Temp 35 (25-40) mm/Hg VBG HCO3 27.9 (22-28) meq/L VBG O2 Sat (Lam) 65.3 L (95-100) VBG Base Excess 2.7 H (-2.0-2.0) VBG Hemoglobin 15.2 VBG Carboxyhemoglobin 5.3 (0.0-6.9) % T HGB POC Potassium 4.3 (3.5-5.1) Sodium 134 L (135-145) mmol/L Potassium 4.3 (3.5-5.1) mmol/L Chloride 100 (98-107) mmol/L Carbon Dioxide 28 (22-30) mmol/L Anion Gap 11.2 (5-15) MEQ/L BUN 13 (7-17) mg/dL Creatinine 0.86 (0.52-1.04) mg/dL Estimated GFR 81.2 ML/MIN Glucose 209 H (74-106) mg/dL POC Glucometer (74 to 106) mg/dL Calcium 8.9 (8.4-10.2) mg/dL Total Bilirubin 0.60 (0.2-1.3) mg/dL AST 26 (14-36) U/L ALT 23 (0-35) U/L Alkaline Phosphatase 103 (38-126) U/L Serum Total Protein 7.0 (6.3-8.2) g/dL Albumin 4.4 (3.5-5.0) g/dL Urine Color (Yellow) Urine Appearance (Clear) Urine pH (4.6-8.0) Ur Specific Bell (1.005-1.030) Urine Protein (Negative) Urine Glucose (UA) (Negative) mg/dL Urine Ketones (Negative) Urine Blood (Negative) Urine Nitrite (Negative) Urine Bilirubin (Negative) Urine Urobilinogen (0.2) mg/dL Ur Leukocyte Esterase (Negative) U Hyaline Cast (Auto) (0-2) /LPF Urine Microscopic RBC (0-5) /HPF Urine Microscopic WBC (0-5) /HPF Ur Epithelial Cells (None Seen) /HPF Urine Bacteria (None Seen) /HPF Urine Culture Reflexed (NO) 07/14/25 07/14/25 Range/Units 13:15 13:08 WBC (3.98-10.04) x10^3/uL RBC (3.93-5.22) x10^6/uL Hgb (11.2-15.7) g/dL Hct (34.1-44.9) % MCV (79.4-94.8) fL MCH (25.6-32.2) pg MCHC (32.2-35.5) g/dL RDW (11.7-14.4) % Plt Count (182-369) x10^3/uL MPV (9.4-12.3) fL Gran % (34.0-71.1) % Immature Gran % (Auto) (0.001-0.429) % Nucleat RBC Rel Count (0.00-0.2) % Eos # (Auto) (0.04-0.36) x10^3/uL Immature Gran # (Auto) (0.001-0.031) x10^3u/L Absolute Lymphs (auto) (1.18-3.74) x10^3/uL Absolute Monos (auto) (0.24-0.86) x10^3/uL Absolute Nucleated RBC (0.00-0.012) x10^3u/L Lymphocytes % (19.3-51.7) % Monocytes % (4.7-12.5) % Eosinophils % (0.7-5.8) % Basophils % (0.1-1.2) % Absolute Granulocytes (1.56-6.13) x10^3/uL Basophils # (0.01-0.08) x10^3/uL pO2/FiO2 Ratio % VBG pH (7.32-7.42) VBG pCO2 at Pat Temp (42-55) mm/Hg VBG pO2 at Pat Temp (25-40) mm/Hg VBG HCO3 (22-28) meq/L VBG O2 Sat (Lam) (95-100) VBG Base Excess (-2.0-2.0) VBG Hemoglobin VBG Carboxyhemoglobin (0.0-6.9) % T HGB POC Potassium (3.5-5.1) Sodium (135-145) mmol/L Potassium (3.5-5.1) mmol/L Chloride (98-107) mmol/L Carbon Dioxide (22-30) mmol/L Anion Gap (5-15) MEQ/L BUN (7-17) mg/dL Creatinine (0.52-1.04) mg/dL Estimated GFR ML/MIN Glucose (74-106) mg/dL POC Glucometer 215 H (74 to 106) mg/dL Calcium (8.4-10.2) mg/dL Total Bilirubin (0.2-1.3) mg/dL AST (14-36) U/L ALT (0-35) U/L Alkaline Phosphatase (38-126) U/L Serum Total Protein (6.3-8.2) g/dL Albumin (3.5-5.0) g/dL Urine Color Yellow (Yellow) Urine Appearance Clear (Clear) Urine pH 6.5 (4.6-8.0) Ur Specific Bell >=1.030 A (1.005-1.030) Urine Protein Negative (Negative) Urine Glucose (UA) >=1000 A (Negative) mg/dL Urine Ketones Trace A (Negative) Urine Blood Negative (Negative) Urine Nitrite Negative (Negative) Urine Bilirubin Negative (Negative) Urine Urobilinogen 0.2 (0.2) mg/dL Ur Leukocyte Esterase Negative (Negative) U Hyaline Cast (Auto) NONE SEEN (0-2) /LPF Urine Microscopic RBC 0-2 (0-5) /HPF Urine Microscopic WBC 0-2 (0-5) /HPF Ur Epithelial Cells None Seen (None Seen) /HPF Urine Bacteria None Seen (None Seen) /HPF Urine Culture Reflexed NO (NO) - Progress Progress Note: 07/14/25 14:25 I discussed lab results, recommend patient follow-up with her primary care doctor - Departure Departure Disposition: Home Clinical Impression: Hyperglycemia Condition: Stable Critical Care Time: No Referrals: THUY VALDEZ MD [Primary Care Provider, [facility]] - Follow up with PCP 5 days Instructions: High Blood Sugar, Adult (DC) Additional Instructions: Continue home medications
[2025-07-14 13:34] LABS: VBG BASE EXCESS 2.7 (-2.0-2.0); VBG CARBOXYHEMOGLOBIN 5.3 % T HGB (0.0-6.9); VBG FIO2 21.0 %; VBG HCO3- 27.9 meq/L (22-28); VBG HEMOGLOBIN 15.2; VBG O2 SATURATION 65.3 (95-100); VBG PCO2 44.0 mm/Hg (42-55); VBG PO2 35.0 mm/Hg (25-40); VBG POTASSIUM 4.3 (3.5-5.1)
[2025-07-14 13:35] VITALS: RESP 18; TEMP 98.2
[2025-07-14 13:36] LABS: BASOPHIL % 1.4 % (0.1-1.2); Basophil (Absolute #) 0.07 x10^3/uL (0.01-0.08); Eosinophil (Absolute #) 0.03 x10^3/uL (0.04-0.36); Hematocrit 45.5 % (34.1-44.9); Hemoglobin 14.9 g/dL (11.2-15.7); IMMATURE GRAN # 0.00 x10^3u/L (0.001-0.031); IMMATURE GRAN % 0.0 % (0.001-0.429); Lymphocyte (Absolute #) 1.43 x10^3/uL (1.18-3.74); Mean Corpuscular Hemoglobin 30.8 pg (25.6-32.2); Mean Corpuscular Hgb Concent. 32.7 g/dL (32.2-35.5); Monocyte (Absolute #) 0.47 x10^3/uL (0.24-0.86); NUCLEATED RBC # 0.00 x10^3u/L (0.00-0.012); NUCLEATED RBC % 0.0 % (0.00-0.2); Platelet Count 243 x10^3/uL (182-369); Red Blood Count 4.84 x10^6/uL (3.93-5.22); White Blood Count 5.1 x10^3/uL (3.98-10.04)
[2025-07-14 13:52] LABS: Calcium 8.9 mg/dL (8.4-10.2); Carbon Dioxide 28.0 mmol/L (22-30); Creatinine 1 0.86 mg/dL (0.52-1.04); EST GLOMERULAR FILTRATION RATE 81.2 ML/MIN; Glucose 209.0 mg/dL (74-106); Potassium 4.3 mmol/L (3.5-5.1); SGOT/AST 26.0 U/L (14-36); SGPT/ALT 23.0 U/L (0-35); Total Protein 7.0 g/dL (6.3-8.2)
[2025-07-14 14:14] VITALS: BP 124/55; PULSE 70
[2025-07-14 14:27] VITALS: O2SAT 98
== END 2025-07-14 14:52 | disposition home or self-care (01) ==
LOC: ED 12:50
DX: E11.65 Type 2 diabetes mellitus with hyperglycemia (principal); R61 Generalized hyperhidrosis; I10 Essential (primary) hypertension; Z79.84 Long term (current) use of oral hypoglycemic drugs; Z79.4 Long term (current) use of insulin; Z79.02 Long term (current) use of antithrombotics/antiplatelets; Z79.899 Other long term (current) drug therapy; Z72.0 Tobacco use; Z59.819 Housing instability, housed unspecified; Z59.12 Inadequate housing utilities; Z59.41 Food insecurity; Z59.82 Transportation insecurity